=== PATIENT | female | born 1975 | race Caucasian/White ===

== ENCOUNTER 2019-07-31 16:37 | Outpatient (REF) | payer OTHER, MEDICARE, SELFPAY | END 2019-07-31 16:57 | LOC: NCHCN 16:37 | PROVIDERS: PCP Physician Assistant; Visit Provider Nurse Practitioner Family | DX: R19.7 Diarrhea, unspecified (principal) | CPT/HCPCS: 87324 ==

== ENCOUNTER 2019-10-09 13:15 | Outpatient (REF) | payer OTHER, MEDICARE, SELFPAY ==
[2019-10-09 19:30] LABS: HCT 37.4 % (36.0-46.0); HGB 12.4 g/dL (12.0-15.5); Mean Corp. HGB Concentration 33.2 g/dL (32.0-36.0); Mean Corpuscular Hemoglobin 28.1 pg (27.0-33.0); Mean Corpuscular Volume 84.8 fL (80-95); Mean Platelet Volume 12.1 fL (8.0-11.0); Platelet Count 298 x1000/uL (130-400); RBC 4.41 m/cumm (4.00-5.20); RBC Distribution Width 13.4 % (11.7-14.6); White Blood Cell Count 5.27 k/cumm (4.4-10.8)
[2019-10-09 20:15] LABS: Iron 75 ug/dL (50-170); Total Iron Binding Capacity 209 ug/dL (250-450); Transferrin Sat 36 % (15-50)
[2019-10-09 20:39] LABS: Ferritin 69 ng/mL (8-252); Magnesium 2.2 mg/dL (1.8-2.4); Vitamin B12 359 pg/mL (193-986)
== END 2019-10-09 13:35 ==
LOC: NCHCN 13:15
PROVIDERS: PCP Physician Assistant; Visit Provider Nurse Practitioner Family
DX: R53.83 Other fatigue (principal); M25.50 Pain in unspecified joint
CPT/HCPCS: 85027; 82607; 82728; 83540; 83550; 83735

== ENCOUNTER 2019-11-16 16:49 | Outpatient (REF) | payer OTHER, MEDICARE, SELFPAY ==
[2019-11-20 09:58] LABS: SARS-CoV-2 RNA Undetected (Undetected); SARS-CoV-2 Specimen Source Nasopharynx
== END 2019-11-16 17:09 ==
LOC: NCHCN 16:49
PROVIDERS: PCP Physician Assistant; Visit Provider Nurse Practitioner Family
DX: Z11.59 Encounter for screening for other viral diseases (principal)
CPT/HCPCS: U0003

== ENCOUNTER 2020-04-23 15:19 | Outpatient (REF) | payer MEDICARE, SELFPAY ==
[2020-04-25 09:37] LABS: COVID-19 RT-PCR Result NEGATIVE (Negative)
== END 2020-04-23 15:39 ==
LOC: NCHCN 15:19
PROVIDERS: PCP Family Medicine; Visit Provider Family Medicine
DX: J44.1 Chronic obstructive pulmonary disease with (acute) exacerbation (principal)
CPT/HCPCS: U0003

== ENCOUNTER 2020-05-12 16:09 | Outpatient (REF) | payer MEDICARE, SELFPAY ==
[2020-05-14 12:30] LABS: COVID-19 RT-PCR UVMMC Result Negative (Negative)
== END 2020-05-12 16:29 ==
LOC: NCHCN 16:09
PROVIDERS: PCP Family Medicine; Visit Provider Internal Medicine
DX: J06.9 Acute upper respiratory infection, unspecified (principal)
CPT/HCPCS: U0003

== ENCOUNTER 2020-09-17 19:28 | Outpatient (REF) | payer MEDICARE, SELFPAY ==
[2020-09-19 13:53] LABS: COVID-19 RT-PCR UVMMC Result Negative (Negative)
== END 2020-09-17 19:29 | disposition home or self-care (01) ==
LOC: NCHCN 19:28
PROVIDERS: PCP Family Medicine; Visit Provider Internal Medicine
DX: Z20.822 Contact with and (suspected) exposure to COVID-19 (principal); R06.02 Shortness of breath
CPT/HCPCS: U0003

== ENCOUNTER 2020-11-18 20:06 | Outpatient (REF) | payer MEDICARE, SELFPAY ==
[2020-11-18 21:54] LABS: C Diff PCR Negative (Negative)
[2020-11-19 22:59] LABS: Campylobacter PCR Negative (Negative); Salmonella PCR Negative (Negative); Shiga Toxin PCR Negative (Negative); Shigella/Enteroinvasive Ecoli Negative (Negative)
== END 2020-11-18 20:07 | disposition home or self-care (01) ==
LOC: NCHCN 20:06
PROVIDERS: PCP Family Medicine; Visit Provider Nurse Practitioner Family
DX: R19.7 Diarrhea, unspecified (principal)
CPT/HCPCS: 87329; 87493; 87505; 87177

== ENCOUNTER 2021-02-02 16:20 | Outpatient (REF) | payer MEDICARE, MEDICAID, SELFPAY ==
[2021-02-02 20:20] LABS: CREATININE 0.8 mg/dL (0.55-1.02)
== END 2021-02-02 16:21 | disposition home or self-care (01) ==
LOC: NCHCN 16:20
PROVIDERS: PCP Family Medicine; Visit Provider Nurse Practitioner Family
DX: R10.9 Unspecified abdominal pain (principal)
CPT/HCPCS: 82565

== ENCOUNTER 2021-04-07 15:30 | Outpatient (REF) | payer MEDICARE, MEDICAID, SELFPAY ==
[2021-04-09 16:59] LABS: COVID-19 RT-PCR UVMMC Result Negative (Negative)
== END 2021-04-07 15:31 | disposition home or self-care (01) ==
LOC: NCHCN 15:30
PROVIDERS: PCP Family Medicine; Visit Provider Nurse Practitioner Family
DX: Z20.822 Contact with and (suspected) exposure to COVID-19 (principal); R05.8 Other specified cough
CPT/HCPCS: U0003

== ENCOUNTER 2021-05-06 16:26 | Outpatient (REF) | payer MEDICARE, MEDICAID, SELFPAY ==
[2021-05-08 11:18] LABS: COVID-19 RT-PCR UVMMC Result Negative (Negative)
== END 2021-05-06 16:27 | disposition home or self-care (01) ==
LOC: NCHCN 16:26
PROVIDERS: PCP Family Medicine; Visit Provider Physician Assistant
DX: Z20.822 Contact with and (suspected) exposure to COVID-19 (principal)
CPT/HCPCS: U0003; U0005

== ENCOUNTER 2021-06-05 15:47 | Outpatient (REF) | payer MEDICARE, MEDICAID, SELFPAY ==
[2021-06-07 12:04] LABS: COVID-19 RT-PCR UVMMC Result Negative (Negative)
== END 2021-06-05 15:48 | disposition home or self-care (01) ==
LOC: NCHCN 15:47
PROVIDERS: PCP Family Medicine; Visit Provider Physician Assistant
DX: Z20.822 Contact with and (suspected) exposure to COVID-19 (principal); R06.02 Shortness of breath
CPT/HCPCS: U0003

== ENCOUNTER 2021-07-27 13:48 | Outpatient (REF) | payer MEDICARE, MEDICAID, SELFPAY ==
[2021-07-29 11:32] LABS: COVID-19 RT-PCR UVMMC Result Positive (Negative)
== END 2021-07-27 13:49 | disposition home or self-care (01) ==
LOC: NCHCN 13:48
PROVIDERS: PCP Family Medicine; Visit Provider Internal Medicine
DX: Z20.822 Contact with and (suspected) exposure to COVID-19 (principal)
CPT/HCPCS: U0003; U0005

== ENCOUNTER 2022-10-12 16:00 | Emergency (ER) | payer MEDICARE, MEDICAID, SELFPAY ==
[2022-10-12 16:05] VITALS: BP 127/80; RESP 120; TEMP 36.1; O2SAT 99
--- NOTE | 2022-10-12 16:30 | DI.CT_ITS ---
Exam(s) CT ABDOMEN PELVIS W EXAM: CT ABDOMEN PELVIS W CLINICAL HISTORY: hematuria TECHNIQUE: Imaging Protocol: Axial computed tomography images with coronal and sagittal reformatted images were created and reviewed CONTRAST MATERIAL: Intravenous: Omnipaque 350 Contrast volume:100 mL Oral: No COMPARISON: No exams were available for comparison FINDINGS: ABDOMEN: Lung Bases: There is a mitral valve replacement. Liver: Normal density. There is a well-circumscribed hypodensity in the right lobe of the liver. It measures 1.1 cm. It is most suggestive of a cyst. There is a nonspecific hypodensity in the left lo be of the liver. It is too small for further characterization. Portal, Superior Mesenteric, and Splenic Veins: Unremarkable. Gallbladder and Biliary Tract: Status post cholecystectomy. The common duct measures 1 cm. This lik mckinley reflects post cholecystectomy changes. No evidence of pancreatic head mass is seen. Pancreas: Normal density, no abnormal calcifications or inflammatory process. Spleen: Normal. Adrenals: No masses seen. Kidneys: Normal size, contour and axis. No radiodense stones or obstructive uropathy. There is a 9 mm simple cyst in the lower pole of the left kidney. No follow-up is recommended. There is a tiny hyp odensity in the midpole of the right kidney. It is too small for further characterization but likely reflects a small cyst. Abdominal Aorta: Abdominal portion non-dilated. Bowel: There are diverticula seen in the colon, but no evidence of acute diverticulitis. There is no evidence of bowel obstruction. Surgical clips are seen in the region of the cecum suggesting prior appendectomy. There is mild thickening of the wall of the descending colon and proximal sigmoid colo n without pericolonic inflammatory change. This may be due to underdistention. Peritoneal Cavity: No ascites, collection or mesenteric inflammatory response. No free air. Lymph Nodes: Within normal limits. Bones: Within normal limits for the patient's age. Soft Tissues: There is a small fat containing umbilical hernia. PELVIS: Bladder: There is diffuse thickening of the wall of the urinary bladder. Reproductive Organs: Patient is status post hysterectomy. Lymph Nodes: Within normal limits. Bones: Within normal limits for the patient's age. IMPRESSION: 1. No evidence of nephrolithiasis or hydronephrosis. 2. Diffuse thickening of the wall of the urinary bladder. This can be seen with underdistention. Pl ease correlate clinically. 3. Diverticulosis but no evidence of acute diverticulitis. 4. Mild thickening of the wall of portions of the colon. This may be due to underdistention. Coliti s cannot be excluded. RADIATION DOSE DELIVERED: 788.21mGy.cm Total DLP DATA REPOSITORY: All CT scans at this facility are submitted to the National Radiology Data Registry (NRDR) Dose Index Registry (DIR) with the [employer] (A[employer]). RADIATION OPTIMIZATION: All CT scans at this facility use at least one of these dose optimization te chniques: automated exposure control; mA and/or kV adjustment per patient size (includes targeted exa ms where dose is matched to clinical indication); or iterative reconstruction.
--- NOTE | 2022-10-12 16:33 | W.ED.GENAD ---
Discharge Plan Disposition Patient Disposition: Home Condition: Improving Discharge Details Clinical Impression: Coumadin toxicity Primary Care Provider: Vielka Dockery ED Provider: Sincere Guido Home Meds and New Rx's Prescriptions: Held warfarin 2 mg tablet 2 mg PO DAILY Hold Instructions: Resume on 10/13/22. Patient Comments: 6mg - tue- tue- Tuesday, 4mg the rest of week No Action clonazepam 1 mg tablet 1 mg PO DAILY Qty: 90 0RF trazodone 100 mg tablet 100 mg PO QHS Qty: 90 1RF zolpidem 5 mg tablet 5 mg PO QHS PRN (Reason: sleep) Qty: 90 0RF ondansetron 8 mg tablet,disintegrating 8 mg PO Q8H PRN (Reason: nausea and vomiting) Qty: 90 1RF fluvoxamine 100 mg tablet 100 mg PO BID naratriptan 2.5 mg tablet See Rx Instructions PO .COMPLEX Rx Instructions: take 1 tab at onset of headache; if no relief may repeat 1 tab after at least 4 hrs; max = 2 tabs/24 hrs PO folic acid 1 mg tablet 1 mg PO DAILY aspirin 81 mg tablet,delayed release (DR/EC) 81 mg PO DAILY metoprolol tartrate 25 mg tablet 12.5 mg PO BID amoxicillin 500 mg capsule 2,000 mg PO ONCE Rx Instructions: prior to any dental procedure potassium 99 mg PO DAILY azithromycin 500 mg tablet 500 mg PO .-- albuterol sulfate 2.5 mg /3 mL (0.083 %) solution for nebulization 2.5 mg inhalation Q4H PRN melatonin 3 mg tablet 15 mg PO HS topiramate [Topamax] 25 MG tablet 25 mg PO BID duloxetine 60 mg capsule,delayed release(DR/EC) 60 mg PO DAILY Qty: 90 1RF Rx Instructions: Patient will stop Reglan. nicotine 21 mg/24 hr patch 24 hour 1 patch transdermal DAILY Qty: 28 0RF omeprazole 40 mg capsule,delayed release(DR/EC) See Rx Instructions .ROUTE .COMPLEX Qty: 60 12RF Dose Instruction: TAKE ONE CAPSULE BY MOUTH TWICE A DAY Rx Instructions: TAKE ONE CAPSULE BY MOUTH TWICE A DAY meclizine 25 mg tablet See Rx Instructions .ROUTE .COMPLEX Qty: 90 0RF Dose Instruction: TAKE TWO TABLETS BY MOUTH THREE TIMES A DAY NEEDED Rx Instructions: TAKE TWO TABLETS BY MOUTH THREE TIMES A DAY NEEDED benzonatate 200 mg capsule 200 mg PO TID Qty: 90 1RF Discharge Instructions Instructions: Elevated INR (ED) Discharge Data Discharge Physician: Sincere Guido Medical Decision Making Patient presents emergency department with ecchymosis to right forearm stating that she is not taking her Coumadin for she developed this ecchymosis and on Tuesday developed hematuria where she went to [facility] and states that her INR was 5. States that she did not get a vitamin K reason she showed up today again for reevaluation. Here PT and INR are 3.4 which is therapeutic for her at this time. There is notices vitamin K. She had a CT of the abdomen and pelvis which shows some thickening of the bladder which could be compatible with hemorrhagic cystitis. Urinalysis does not show any abnormality at this time and labs are unremarkable except for potassium of 2.8. Patient states that her previous potassium that was obtained was 2.5 and she takes potassium tablets. She received 10 meq of potassium in the emergency department Differential Diagnosis Differential Diagnosis: 1. Coumadin toxicity 2. Hemorrhagic cystitis 3. Hematuria Medical Records Medical records reviewed: Yes I reviewed the patient's medical records. Imaging Data Radiologic Study: Attestation: I personally reviewed and interpreted this imaging study as follows: Imaging: CT Scan My impression: Agree with radiology reading as described below Radiologist's impression: liang Name: Yelitza Hughes Unit #: [id number] Loc: ER ? Ordering Provider:? Status: REG ER ? Primary Care Provider: Vielka Dockery NP Date of Exam: 10/12/22 Sex: F ? : 1975 Age: 46 ? Exam(s) PROCEDURE INFORMATION: Exam: CT Abdomen And Pelvis With Contrast Exam date and time: 10/12/2022 5:35 PM Age: 46 years old Clinical indication: Other: Hematuria; Prior surgery; Surgery date: 6+ months; Surgery type: Gallbladder removed, appendectomy, hysterotomy TECHNIQUE: Imaging protocol: Computed tomography of the abdomen and pelvis with contrast. Radiation optimization: All CT scans at this facility use at least one of these dose optimization techniques: automated exposure control; mA and/or kV adjustment per patient size (includes targeted exams where dose is matched to clinical indication); or iterative reconstruction. Contrast material: OMNIPAQUE 350; Contrast volume: 100 ml; Contrast route: INTRAVENOUS (IV);? COMPARISON: No relevant prior studies available. FINDINGS: Liver: There is a 1 cm right hepatic lobe cyst. Gallbladder and bile ducts: There has been a cholecystectomy. There is mild biliary ductal dilatation, likely related to the prior cholecystectomy. Pancreas: The pancreas is mildly atrophic, but otherwise appears unremarkable without focal lesion or evidence of acute inflammation. Spleen: Normal. No splenomegaly. Adrenal glands: Normal. No mass. Kidneys and ureters: No renal or ureteral stones are identified. There is no hydronephrosis or hydroureter. There are multiple focal small regions of renal cortical scarring. There are multiple subcentimeter low-dense renal lesions which are too small to characterize but likely represent benign cysts. Stomach and bowel: There are scattered colonic diverticula without evidence for acute diverticulitis. The colon is not well distended, limiting evaluation. Cannot exclude regions of mild colitis involving the right colon and sigmoid colon. The small bowel appears normal. There is no evidence for bowel obstruction. Appendix: There has been an appendectomy. Intraperitoneal space: There is no free intraperitoneal air. There is no evidence of free intraperitoneal fluid. Vasculature: Unremarkable. No abdominal aortic aneurysm. Lymph nodes: Unremarkable. No enlarged lymph nodes. Urinary bladder: No bladder stones are identified. Findings suggest mild diffuse bladder wall thickening, although the bladder is not well distended, limiting evaluation. Reproductive: There has been a hysterectomy. Bones/joints: Unremarkable. No acute fracture. Soft tissues: Unremarkable. Other findings: . IMPRESSION: 1. ? No urinary tract stones or evidence of urinary tract obstruction. 2. ? Findings suggest mild diffuse bladder wall thickening, which can be seen in the setting of cystitis. Recommend clinical correlation. 3. ? The colon is not well distended, limiting evaluation. Cannot exclude regions of mild colitis, as described above. Recommend clinical correlation. 4. ? Status post cholecystectomy, appendectomy and hysterectomy. Dictated and Authenticated by: Raudel Gillette MD. Ordering:KALEB Post MD Lab Data Lab results reviewed: Yes I reviewed the patient's lab results. Lab results narrative: Labs show an INR of 3.4 with a normal white blood cell count urinalysis does not show hematuria at this time with pyuria and the only abnormality is that her potassium is 2.8. Patient does state that she take potassium tablets for potassium below previous Labs: RUN DATE: 10/12/22 [facility] PAGE 1 RUN TIME: [id number] RUN USER: [place] [address] Iris Del Rosario MD PATIENT REPORT PATIENT: Yelitza Hughes LOC: ER U #: [id number] /SX: 1975 F ROOM: RE10/12/[address]: SINCERE GUIDO MD STATUS: REG ER BED: DIS: SPEC #: [id number] DENIS: 10/12/22 STATUS: COMP REQ #: [id number] RECD: 10/12/[address]: SINCERE GUIDO MD ENTERED: 10/12/[address]: VIELKA DOCKERY NP FAX #: ORDERED: Urinalysis Test Result Flag Reference Verified Color Yellow Yellow 10/12/22 Clarity Clear Clear 10/12/22 Specific [place] <= 1.005 1.005-1.025 10/12/22 pH 5.5 5-8 10/12/22 Leukocyte Esterase Negative Negative 10/12/22 Nitrite Negative Negative 10/12/22 Protein Negative Negative mg/dL 10/12/22 Glucose Negative Negative mg/dL 10/12/22 Ketones 15 H Negative mg/dL 10/12/22 Urobilinogen 0.2 Up to 0.2 mg/dL 10/12/22 Bilirubin Negative Negative 10/12/22 Blood Negative Negative 10/12/22 Patient: Yelitza Hughes LABORATORY HPI General Date/Time Provider Initiated Documentation: 10/12/22 16:09. HPI Narrative: Patient presents emergency department concern for she has taken Coumadin and her INR has gone up to 5 and went to [facility] yesterday where she states they did not do anything and now she is noted a ecchymosis on her right arm and forearm and also had an episode of hematuria. Denies any abdominal pain denies any flank pain denies any headache. Reports she takes Coumadin for she has 2 valve replacements has been taking it for years but it is difficult for her to maintain her INR between 2.5 and 3.5. Related Data Home Medications Medication Instructions Recorded Confirmed topiramate 25 mg tablet (Topamax) 25 mg PO BID 02/20/13 10/12/22 albuterol sulfate 2.5 mg/3 mL 2.5 mg inhalation Q4H PRN 08/12/22 10/12/22 (0.083 %) solution for nebulization amoxicillin 500 mg capsule 2,000 mg PO ONCE 08/12/22 09/08/22 aspirin 81 mg tablet,delayed 81 mg PO DAILY 08/12/22 09/08/22 release azithromycin 500 mg tablet 500 mg PO .M-W-F 08/12/22 09/08/22 fluvoxamine 100 mg tablet 100 mg PO BID 08/12/22 10/12/22 folic acid 1 mg tablet 1 mg PO DAILY 08/12/22 10/12/22 melatonin 3 mg tablet 15 mg PO HS 08/12/22 09/08/22 metoprolol tartrate 25 mg tablet 12.5 mg PO BID 08/12/22 09/08/22 naratriptan 2.5 mg tablet See Rx Instructions PO .COMPLEX 08/12/22 09/08/22 potassium 99 mg PO DAILY 08/12/22 10/12/22 warfarin 2 mg tablet 2 mg PO DAILY 08/12/22 10/12/22 duloxetine 60 mg capsule,delayed 60 mg PO DAILY #90 caps 08/18/22 10/12/22 release nicotine 21 mg/24 hr daily 1 patch transdermal DAILY #28 ea 08/25/22 10/12/22 transdermal patch clonazepam 1 mg tablet 1 mg PO DAILY #90 tabs 09/08/22 10/12/22 ondansetron 8 mg disintegrating 8 mg PO Q8H PRN nausea and 09/08/22 10/12/22 tablet vomiting #90 tabs trazodone 100 mg tablet 100 mg PO QHS #90 tabs 09/08/22 10/12/22 zolpidem 5 mg tablet 5 mg PO QHS PRN sleep #90 tabs 05/24/23 06/27/23 benzonatate 200 mg capsule 200 mg PO TID #90 caps 09/29/22 10/12/22 meclizine 25 mg tablet See Rx Instructions .Route 09/29/22 10/12/22 .COMPLEX #90 tabs omeprazole 40 mg capsule,delayed See Rx Instructions .Route 09/29/22 10/12/22 release .COMPLEX #60 caps Previous Rx's Medication Instructions Recorded duloxetine 60 mg capsule,delayed 60 mg PO DAILY #90 caps 08/18/22 release nicotine 21 mg/24 hr daily 1 patch transdermal DAILY #28 ea 08/25/22 transdermal patch clonazepam 1 mg tablet 1 mg PO DAILY #90 tabs 09/08/22 ondansetron 8 mg disintegrating 8 mg PO Q8H PRN nausea and 09/08/22 tablet vomiting #90 tabs trazodone 100 mg tablet 100 mg PO QHS #90 tabs 09/08/22 zolpidem 5 mg tablet 5 mg PO QHS PRN sleep #90 tabs 09/08/22 benzonatate 200 mg capsule 200 mg PO TID #90 caps 09/29/22 meclizine 25 mg tablet See Rx Instructions .Route 09/29/22 .COMPLEX #90 tabs omeprazole 40 mg capsule,delayed See Rx Instructions .Route 09/29/22 release .COMPLEX #60 caps Allergies Allergy/AdvReac Type Severity Reaction Status Date / Time celecoxib [From Celebrex] Allergy Intermediate Verified 10/12/22 18:06 latex Allergy Intermediate Verified 10/12/22 18:06 naproxen Allergy Intermediate Verified 10/12/22 18:06 acetaminophen [From Vicodin] AdvReac Intermediate Nausea Unverified 10/12/22 18:08 hydrocodone [From Vicodin] AdvReac Intermediate Nausea Unverified 10/12/22 18:08 mushrooms Allergy Severe hives,itch Uncoded 10/12/22 18:06 adhesive tape Allergy Intermediate skin Uncoded 10/12/22 18:06 zurita, itching General Stated Complaint: GenMedical ROSA: 3 Review of Systems All systems reviewed & are unremarkable except as noted in HPI and below Constitutional Constitutional: Reports as per HPI and Reports system reviewed and no additional complaints, except as documented Eyes Eyes: Reports as per HPI and Reports system reviewed and no additional complaints, except as documented ENT Ears, Nose, Mouth, and Throat: Reports system reviewed and no additional complaints, except as documented and Reports as per HPI Cardiovascular Cardiovascular: Reports as per HPI and Reports system reviewed and no additional complaints, except as documented Respiratory Respiratory: Reports as per HPI and Reports system reviewed and no additional complaints, except as documented Gastrointestinal Gastrointestinal: Reports as per HPI and Reports system reviewed and no additional complaints, except as documented Genitourinary Genitourinary: Reports system reviewed and no additional complaints, except as documented and Reports as per HPI Musculoskeletal Musculoskeletal: Reports system reviewed and no additional complaints, except as documented and Reports as per HPI Neurologic Neurologic: Reports system reviewed and no additional complaints, except as documented and Reports as per HPI Psychiatric Psychiatric: Reports system reviewed and no additional complaints, except as documented and Reports as per HPI Endocrine Endocrine: Reports system reviewed and no additional complaints, except as documented and Reports as per HPI Hematologic/Lymphatic Hematologic/Lymphatic: Reports system reviewed and no additional complaints, except as documented and Reports as per HPI PFSH All Active Problems (Updated 10/12/22 @ 19:27 by Sincere Guido MD) Coumadin toxicity (Acute) History of traumatic brain injury (Acute) GERD (gastroesophageal reflux disease) (Chronic) Lumbago (Acute) Cigarette smoker (Acute) Benign positional vertigo (Acute) Anxiety (Chronic) Restless leg syndrome (Acute) Depression (Chronic) Insomnia (Acute) Dysphagia (Acute) Irritable bowel syndrome (IBS) (Chronic) Eating disorder (Acute) Mitral valve stenosis (Acute) Pulmonary hypertension (Acute) Chronic obstructive pulmonary disease (Chronic) Orthostatic hypotension (Acute) Anemia (Chronic) Medical History Fatigue H/O concussion H/O deep venous thrombosis Polypharmacy Post-concussion syndrome (09/20/13) Surgical History H/O aortic valve replacement Hx of hysterectomy Hx of tubal ligation Family History Father Alcohol use disorder Asthma Daughter Anxiety Asthma Depression Maternal Grandfather Heart disease Depression Social History Smoking/Tobacco Use Status: Current every day Tobacco: How many years used: 38 Smoking risk assessment performed?: Yes Alcohol Intake: current Alcohol Intake frequency: a few times a month Alcohol type: beer Drug use: Never Substance use type: does not use Details: On nicotine patches Adopted: No Caregiver/Support person: No Foster care: No Household members: none Housing: house Number of Children: 4 number of grandchildren: 4 Education Level: high school current occupation: none Pets and animals: Yes Pets and animals: dog(s) Sexually active: No Do you think of yourself as: straight/heterosexual How often do you talk on the phone with friends or family?: three or more times per week How often do you get together with friends or relatives?: three or more times per week Panel score (0-1 are the most socially isolated patients): 1 What type of physical activity do you participate in: none Special radha needs: No Seatbelt use: never Helmet use: Yes Helmet use: sometimes Drive intox or ride w/intox taxicab driver: No Do you feel safe at home: Yes Do you feel safe in your relationship?: Yes Exam Narrative Exam Narrative: Exam; vitals signs as reported above Constitutional; In no acute distress, afebrile General: cooperative, healthy appearing, comfortable and no acute distress HEENT: Head: normal to inspection, no palpable skull fracture and normocephalic Eyes: l: appearance normal, both eyes and all related structures ]Pupils: PERRL EOM: EOM intact bilaterally Direct ophthalmoscopy: normal light reflex, normal conjunctiva, normal visual acuity Neck no JVD, supple Neck: normal visual inspection, full ROM and no lymphadenopathy Chest Chest: normal inspection of the chest Respiratory : normal respiratory effort and able to speak in complete sentences Cardio Rate: regular rate Rhythm: regular rhythm normal heart sounds S1 and S2 no murmurs, gallops, or rubs GI Inspection: normal to inspection, normal bowel sounds, soft, non tender, non distended, no organomegally Back/Spine/ no CVA tenderness Thoracic/Lumbar Spine: no tenderness or deformities Skin no rashes or lesions Neuro: patient alert and no meningeal signs, Cranial Nerves: CN's II-XI intact bilaterally, Cognition: normal cognition, Speech: speech normal, Gait: normal gait, Depp tendon reflexes normal 2+ Extremities, no edema, full range of motion, normal strength 10 x 10 cm linear ecchymosis in the right arm nontender and superficial : nomal Course Vital Signs Vital signs: Vital Signs Temperature 36.1 C L 10/12/22 16:05 Respiratory Rate 120 H 10/12/22 16:05 Blood Pressure 127/80 10/12/22 16:05 Pulse Oximetry 99 10/12/22 16:05 Temperature 36.1 C L 10/12/22 16:05 Respiratory Rate 120 H 10/12/22 16:05 Respiratory Effort Normal 10/12/22 16:11 Blood Pressure 127/80 10/12/22 16:05 Pulse Oximetry 99 10/12/22 16:05 Oxygen Delivery Method Room Air 10/12/22 16:05 Oxygen Flow Rate 0 10/12/22 16:05 Pain Level 6 10/12/22 16:05 PAWSS Have you Been Recently Intoxicated or Drunk Within the Last 30 days?: No Have you Ever Experienced Previous Episodes of Alcohol Withdrawal?: No Have you ever Experienced Withdrawal Seizures?: No Have you ever Experienced Delirium Tremens(DT)s?: No Have you ever undergone Alcohol Rehabilitation Treatment (i.e, inpt ot outpatient treatment programs)?: No Have you ever Experienced Blackouts?: No Have you ever Combined Alcohol with other Downers within the last 90 days?: No Have you ever Combined Alcohol with any other Substance of Abuse during the last 90 days?: No Result: 0 Vital Signs and Lab Results Vital Signs Most Recent Vital Signs in EMR: Most Recent Vital Signs Temp Pulse Resp BP Pulse Ox 36.1 C L 92 H 20 123/77 98 10/12/22 16:05 10/12/22 17:48 10/12/22 18:10 10/12/22 17:48 10/12/22 17:48 Lab Results 10/12/22 16:46 10/12/22 16:46 Blood Type / Crossmatch: Patient ABO/Rh O Positive 10/12/22 Antibody Screen NEGATIVE 10/12/22 Complete Blood Count: White Blood Count 8.81 10^3/uL (4.4-10.8) 10/12/22 16:46 Red Blood Count 4.25 10^6/uL (3.93-5.22) 10/12/22 16:46 Hemoglobin 10.8 g/dL (11.2-15.7) L 10/12/22 16:46 Hematocrit 34.0 % (36.0-46.0) L 10/12/22 16:46 Platelet Count 373 10^3/uL (130-400) 10/12/22 16:46 Complete Metabolic Panel: Sodium 138 mmol/L (136-145) 10/12/22 16:46 Potassium 2.8 mmol/L (3.5-5.1) L* 10/12/22 16:46 Chloride 99 mmol/L (98-107) 10/12/22 16:46 Carbon Dioxide 26.7 mmol/L (21.0-32.0) 10/12/22 16:46 BUN 7 mg/dL (7-18) 10/12/22 16:46 Creatinine 0.7 mg/dL (0.55-1.02) 10/12/22 16:46 Est GFR (CKD-EPI 2020) 107.95 (mL/min/1.73m2) 10/12/22 16:46 Magnesium 1.9 mg/dL (1.8-2.4) 10/12/22 16:46 Calcium 9.2 mg/dL (8.5-10.1) 10/12/22 16:46 Albumin 3.9 g/dL (3.4-5.0) 10/12/22 16:46 Glucose 94 mg/dL (74-106) 10/12/22 16:46 Liver Function Panel: Alanine Aminotransferase (ALT/SGPT) 17 U/L (14-59) 10/12/22 16:46 Aspartate Amino Transf (AST/SGOT) 20 U/L (15-37) 10/12/22 16:46 Coagulation Panel: INR International Normalized Ratio 3.4 (0.9-1.1) H 10/12/22 16:46 Prothrombin Time 34.5 sec (9.3-11.0) H 10/12/22 16:46 Activated Partial Thromboplast Time 54.3 sec (21.5-31.9) H 10/12/22 16:46 Cardiac Panel: No Data to Display Arterial Blood Gas: No Data to Display Venous Blood Gas: No Data to Display Pancreas Panel: No Data to Display Thyroid Panel: No Data to Display Infectious Disease: No Data to Display Blood Cultures: No Data to Display Toxicology Panel: No Data to Display Panel: No Data to Display
[2022-10-12 16:55] LABS: Abs Immature Grans 0.03 10^3/uL (0.0-0.06); Absolute Basophil Count 0.07 10^3/uL (0.0-0.2); Absolute Eosinophil Count 0.04 10^3/uL (0.0-0.7); Absolute Lymphocyte Count 2.09 10^3/uL (1.2-3.4); Absolute Monocyte Count 0.61 10^3/uL (0.1-0.8); Absolute Neutrophil Count 5.97 10^3/uL (1.2-6.7); Basophils % 0.8; Eosinophils % 0.5; HGB 10.8 g/dL (11.2-15.7); Immature Grans % 0.3; Lymphocytes % 23.7; MCH 25.4 pg (27.0-33.0); MCHC 31.8 % (32.0-36.0); MCV 80 fL (80-95); MPV 10.9 fL (8.0-11.0); Monocytes % 6.9; Neutrophils % 67.8; Platelet Count 373 10^3/uL (130-400); RBC 4.25 10^6/uL (3.93-5.22); RDW 18.9 % (11.7-14.6); RDW-SD 55.3 fL; WBC 8.81 10^3/uL (4.4-10.8)
[2022-10-12 17:09] LABS: INR 3.4 (0.9-1.1); PTT Activated 54.3 sec (21.5-31.9); Prothrombin Time 34.5 sec (9.3-11.0)
[2022-10-12 17:15] LABS: ALT 17 U/L (14-59); AST 20 U/L (15-37); Albumin 3.9 g/dL (3.4-5.0); Alkaline Phosphatase 75 U/L (46-116); Anion Gap 12.3 mmol/L (3-11); BUN 7 mg/dL (7-18); Bilirubin, Total 0.7 mg/dL (0.2-1.0); CO2 26.7 mmol/L (21.0-32.0); CREATININE 0.7 mg/dL (0.55-1.02); Calcium 9.2 mg/dL (8.5-10.1); Chloride 99 mmol/L (98-107); Estimated GFR 107.95 (mL/min/1.73m2); Glucose 94 mg/dL (74-106); Magnesium 1.9 mg/dL (1.8-2.4); Sodium 138 mmol/L (136-145)
[2022-10-12 17:16] LABS: Potassium 2.8 mmol/L (3.5-5.1)
[2022-10-12 17:38] LABS: Bilirubin Negative (Negative); Blood Negative (Negative); Clarity Clear (Clear); Glucose Negative (Negative); Ketones 15 mg/dL (Negative); Leukocyte Esterase Negative (Negative); Nitrite Negative (Negative); Specific Gravity <= 1.005 (1.005-1.025); Urobilinogen 0.2 mg/dL (Up to 0.2); pH 5.5 (5-8)
[2022-10-12 17:48] VITALS: BP 123/77; PULSE 92; O2SAT 98
[2022-10-12] MEDS: Omnipaque 350 MG/ML 100 ML BTL IJ (17:48)
[2022-10-12] MEDS: Normal Saline - Diluent 50 ML VIAL IJ (17:48)
[2022-10-12] MEDS: Normal Saline Flush 10 ML SYR IVP (17:49)
[2022-10-12 18:10] VITALS: RESP 20
[2022-10-12] MEDS: POTASSIUM CHLORIDE/D5-0.45NACL 1,000 ML 100 MEQ IV (18:32)
--- NOTE | 2022-10-12 18:54 | DI.VRAD_ITS ---
PROCEDURE INFORMATION: Exam: CT Abdomen And Pelvis With Contrast Exam date and time: 10/12/2022 5:35 PM Age: 46 years old Clinical indication: Other: Hematuria; Prior surgery; Surgery date: 6+ months; Surgery type: Gallbladder removed, appendectomy, hysterotomy TECHNIQUE: Imaging protocol: Computed tomography of the abdomen and pelvis with contrast. Radiation optimization: All CT scans at this facility use at least one of these dose optimization techniques: automated exposure control; mA and/or kV adjustment per patient size (includes targeted exams where dose is matched to clinical indication); or iterative reconstruction. Contrast material: OMNIPAQUE 350; Contrast volume: 100 ml; Contrast route: INTRAVENOUS (IV); COMPARISON: No relevant prior studies available. FINDINGS: Liver: There is a 1 cm right hepatic lobe cyst. Gallbladder and bile ducts: There has been a cholecystectomy. There is mild biliary ductal dilatation, likely related to the prior cholecystectomy. Pancreas: The pancreas is mildly atrophic, but otherwise appears unremarkable without focal lesion or evidence of acute inflammation. Spleen: Normal. No splenomegaly. Adrenal glands: Normal. No mass. Kidneys and ureters: No renal or ureteral stones are identified. There is no hydronephrosis or hydroureter. There are multiple focal small regions of renal cortical scarring. There are multiple subcentimeter low-dense renal lesions which are too small to characterize but likely represent benign cysts. Stomach and bowel: There are scattered colonic diverticula without evidence for acute diverticulitis. The colon is not well distended, limiting evaluation. Cannot exclude regions of mild colitis involving the right colon and sigmoid colon. The small bowel appears normal. There is no evidence for bowel obstruction. Appendix: There has been an appendectomy. Intraperitoneal space: There is no free intraperitoneal air. There is no evidence of free intraperitoneal fluid. Vasculature: Unremarkable. No abdominal aortic aneurysm. Lymph nodes: Unremarkable. No enlarged lymph nodes. Urinary bladder: No bladder stones are identified. Findings suggest mild diffuse bladder wall thickening, although the bladder is not well distended, limiting evaluation. Reproductive: There has been a hysterectomy. Bones/joints: Unremarkable. No acute fracture. Soft tissues: Unremarkable. Other findings: . IMPRESSION: 1. No urinary tract stones or evidence of urinary tract obstruction. 2. Findings suggest mild diffuse bladder wall thickening, which can be seen in the setting of cystitis. Recommend clinical correlation. 3. The colon is not well distended, limiting evaluation. Cannot exclude regions of mild colitis, as described above. Recommend clinical correlation. 4. Status post cholecystectomy, appendectomy and hysterectomy. Dictated and Authenticated by: Raudel Gillette MD. Ordering:KALEB Post MD
== END 2022-10-12 19:45 | disposition home or self-care (01) ==
PROVIDERS: Nurse Practitioner Family; Emergency Provider Emergency Medicine Emergency Medical Services; PCP Nurse Practitioner
DX: T45.511A Poisoning by anticoagulants, accidental (unintentional), initial encounter (principal)
CPT/HCPCS: 36415; 80053; 86850; 86900; 86901; 96365; 99284; 74177; 81003; 83735; 85025; 85610; 85730; J3490

== ENCOUNTER 2022-11-17 16:19 | Outpatient (REF) | payer MEDICARE, MEDICAID, SELFPAY ==
[2022-11-17 19:52] LABS: Abs Immature Grans 0.02 10^3/uL (0.0-0.06); Absolute Basophil Count 0.09 10^3/uL (0.0-0.2); Absolute Eosinophil Count 0.08 10^3/uL (0.0-0.7); Absolute Lymphocyte Count 1.77 10^3/uL (1.2-3.4); Absolute Monocyte Count 0.49 10^3/uL (0.1-0.8); Absolute Neutrophil Count 3.23 10^3/uL (1.2-6.7); Basophils % 1.6; Eosinophils % 1.4; HGB 11.3 g/dL (11.2-15.7); Immature Grans % 0.4; Lymphocytes % 31.2; MCH 25.6 pg (27.0-33.0); MCHC 31.4 % (32.0-36.0); MCV 81 fL (80-95); MPV 11.5 fL (8.0-11.0); Monocytes % 8.6; Neutrophils % 56.8; Platelet Count 446 10^3/uL (130-400); RBC 4.42 10^6/uL (3.93-5.22); RDW-SD 53.9 fL; WBC 5.68 10^3/uL (4.4-10.8)
[2022-11-17 20:01] LABS: ALT 18 U/L (14-59); AST 23 U/L (15-37); Albumin 3.7 g/dL (3.4-5.0); Alkaline Phosphatase 94 U/L (46-116); Anion Gap 9.1 mmol/L (3-11); BUN 3 mg/dL (7-18); Bilirubin, Total 0.3 mg/dL (0.2-1.0); CO2 24.9 mmol/L (21.0-32.0); CREATININE 0.8 mg/dL (0.55-1.02); Calcium 8.8 mg/dL (8.5-10.1); Chloride 105 mmol/L (98-107); Glucose 90 mg/dL (74-106); Potassium 3.7 mmol/L (3.5-5.1); Sodium 139 mmol/L (136-145); Total Protein 7.2 g/dL (6.4-8.2)
== END 2022-11-17 16:20 | disposition home or self-care (01) ==
LOC: LBN 16:19
PROVIDERS: PCP Nurse Practitioner; Visit Provider Nurse Practitioner
DX: E87.6 Hypokalemia (principal); R19.7 Diarrhea, unspecified; J45.909 Unspecified asthma, uncomplicated
CPT/HCPCS: 80053; 85025

== ENCOUNTER 2022-12-10 14:07 | Emergency (ER) | payer MEDICARE, MEDICAID, SELFPAY ==
[2022-12-10] VITALS (10 sets, daily range): BP systolic 127–138; BP diastolic 54–79; PULSE 75–86; RESP 16–18; TEMP 36.7–37.3; O2SAT 100
--- NOTE | 2022-12-10 16:49 | NUR.NOTE ---
Nursing Note: pt has been rude to nurses, pt will not make eye contact, refuses to change into gown, on phone. pt allowed this nurse to try 1x with U/S IV, this nurse went to get MD to try 2nd attempt, pt was non-compliant and rude to provider. provider walked out of room.
[2022-12-10 17:12] LABS: Abs Immature Grans 0.02 10^3/uL (0.0-0.06); Absolute Basophil Count 0.03 10^3/uL (0.0-0.2); Absolute Eosinophil Count 0.07 10^3/uL (0.0-0.7); Absolute Lymphocyte Count 2.12 10^3/uL (1.2-3.4); Basophils % 0.4; HCT 35.9 % (36.0-46.0); HGB 11.3 g/dL (11.2-15.7); Immature Grans % 0.3; MCH 25.6 pg (27.0-33.0); MCHC 31.5 % (32.0-36.0); MCV 81 fL (80-95); MPV 10.4 fL (8.0-11.0); Monocytes % 7.3; Platelet Count 399 10^3/uL (130-400); RBC 4.41 10^6/uL (3.93-5.22); RDW 18.4 % (11.7-14.6); RDW-SD 54.2 fL; WBC 6.84 10^3/uL (4.4-10.8)
[2022-12-10] MEDS: Pantoprazole 40 MG VIAL 80 MG IVP (17:15)
[2022-12-10] MEDS: Normal Saline 1,000 ML 1000 ML IV (17:16)
[2022-12-10 17:35] LABS: ALT 20 U/L (14-59); AST 21 U/L (15-37); Albumin 3.5 g/dL (3.4-5.0); Alkaline Phosphatase 91 U/L (46-116); Anion Gap 7.2 mmol/L (3-11); BUN 5 mg/dL (7-18); Bilirubin, Total 0.4 mg/dL (0.2-1.0); CO2 28.8 mmol/L (21.0-32.0); CREATININE 0.7 mg/dL (0.55-1.02); Calcium 8.8 mg/dL (8.5-10.1); Chloride 103 mmol/L (98-107); Estimated GFR 107.28 (mL/min/1.73m2); Glucose 95 mg/dL (74-106); Magnesium 1.9 mg/dL (1.8-2.4); Potassium 3.6 mmol/L (3.5-5.1); Sodium 139 mmol/L (136-145); Total Protein 7.6 g/dL (6.4-8.2)
--- NOTE | 2022-12-10 18:17 | W.ED.GENAD ---
Discharge Plan Disposition Patient Disposition: Home Condition: Stable Discharge Details Clinical Impression: GERD (gastroesophageal reflux disease) Primary Care Provider: Vielka Cowart ED Provider: Roxi Kendrick Home Meds and New Rx's Prescriptions: New sucralfate [Carafate] 1 gram tablet 1 g PO QACHS Qty: 120 0RF Continued trazodone 100 mg tablet 100 mg PO QHS Qty: 90 1RF estrogen 1 mg PO DAILY azithromycin 250 mg tablet 250 mg PO DAILY Qty: 30 8RF lorazepam 1 mg tablet 1 mg PO DAILY PRN (Reason: anxiety) Qty: 30 0RF zolpidem 10 mg tablet 10 mg PO QHS PRN (Reason: sleep) Qty: 30 0RF topiramate 100 mg tablet 100 mg PO BID Qty: 180 2RF ondansetron 8 mg tablet,disintegrating 8 mg PO Q8H PRN (Reason: nausea and vomiting) Qty: 90 1RF warfarin 2 mg tablet 3 mg PO DAILY Hold Instructions: Resume on 10/13/22. Patient Comments: 6mg - tue- tue- Tuesday, 4mg the rest of week Rx Instructions: 3mg-6mg d/t issues w/ therapeutic effect fluvoxamine 100 mg tablet 100 mg PO BID naratriptan 2.5 mg tablet See Rx Instructions PO .COMPLEX PRN (Reason: Migraine Headache) Rx Instructions: take 1 tab at onset of headache; if no relief may repeat 1 tab after at least 4 hrs; max = 2 tabs/24 hrs PO potassium 99 mg PO DAILY cyclobenzaprine 5 mg tablet See Rx Instructions PO TID PRN (Reason: muscle spasm) Qty: 40 0RF Rx Instructions: 1-2 orally three times a day PRN; duloxetine 60 mg capsule,delayed release(DR/EC) 60 mg PO DAILY Qty: 90 1RF Rx Instructions: Patient will stop Reglan. meclizine 25 mg tablet See Rx Instructions .ROUTE .COMPLEX Qty: 90 0RF Dose Instruction: TAKE TWO TABLETS BY MOUTH THREE TIMES A DAY NEEDED Rx Instructions: TAKE TWO TABLETS BY MOUTH THREE TIMES A DAY NEEDED benzonatate 200 mg capsule 200 mg PO TID Qty: 90 1RF clotrimazole 1 % cream 1 applic topical DAILY PRN (Reason: Rash) Rx Instructions: breast 'sweat bumps' Changed omeprazole 40 mg capsule,delayed release(DR/EC) 40 mg PO BID Qty: 60 12RF Dose Instruction: TAKE ONE CAPSULE BY MOUTH TWICE A DAY Rx Instructions: TAKE ONE CAPSULE BY MOUTH TWICE A DAY Discharge Instructions Instructions: GERD (Gastroesophageal Reflux Disease) (ED) Additional Instructions: return for new or worsening symptoms we added carafate and have referred you to general surgery for further outpatient evaluation and recommendations Referrals: Bishop Durán MD [ [facility] STAFF PHYSICIAN] - Discharge Data Discharge Date/Time-TO BE ENTERED AT DEPARTURE: 12/10/22 18:40 Medical Decision Making Is a 47-year-old female history of gastric ulcers who presents with coffee-ground emesis she has had for weeks. Her vitals are stable physical exam unremarkable. Her H&H was checked and hemoglobin is 11 hematocrit 35.9. As her symptoms have been ongoing and not worsened we did discuss increasing her omeprazole to 40 twice daily and adding Carafate and she will follow-up with outpatient GI or return here sooner for new or worsening symptoms. Her vital signs have remained stable while monitored in the department. Medical Records Medical records reviewed: Yes I reviewed the patient's medical records. Lab Data Lab results reviewed: Yes I reviewed the patient's lab results. Lab results narrative: Laboratory Tests Range/Units 12/10/22 12/10/22 16:59 16:59 WBC (4.4-10.8) 10^3/uL 6.84 RBC (3.93-5.22) 10^6/uL 4.41 Hgb (11.2-15.7) g/dL 11.3 Hct (36.0-46.0) % 35.9 L MCV (80-95) fL 81 MCH (27.0-33.0) pg 25.6 L MCHC (32.0-36.0) % 31.5 L RDW (11.7-14.6) % 18.4 H Plt Count (130-400) 10^3/uL 399 MPV (8.0-11.0) fL 10.4 Immature Gran % 0.3 Neutrophils % 60.0 Lymphocytes % 31.0 Monocytes % 7.3 Eosinophils % 1.0 Basophils % 0.4 Nucleated RBC % (0.0-0.3) % 0.0 Absolute Neutrophils (1.2-6.7) 10^3/uL 4.10 Absolute Lymphocytes (1.2-3.4) 10^3/uL 2.12 Absolute Monocytes (0.1-0.8) 10^3/uL 0.50 Absolute Eosinophils (0.0-0.7) 10^3/uL 0.07 Absolute Basophils (0.0-0.2) 10^3/uL 0.03 Sodium (136-145) mmol/L 139 Potassium (3.5-5.1) mmol/L 3.6 Chloride (98-107) mmol/L 103 Carbon Dioxide (21.0-32.0) mmol/L 28.8 Anion Gap (3-11) mmol/L 7.2 BUN (7-18) mg/dL 5 L Creatinine (0.55-1.02) mg/dL 0.7 Est GFR (CKD-EPI 2020) (mL/min/1.73m2) 107.28 Glucose (74-106) mg/dL 95 Calcium (8.5-10.1) mg/dL 8.8 Magnesium (1.8-2.4) mg/dL 1.9 Total Bilirubin (0.2-1.0) mg/dL 0.4 AST (15-37) U/L 21 ALT (14-59) U/L 20 Alkaline Phosphatase (46-116) U/L 91 Total Protein (6.4-8.2) g/dL 7.6 Albumin (3.4-5.0) g/dL 3.5 HPI General Mode of arrival: ambulatory. Date/Time Provider Initiated Documentation: 12/10/22 14:53. Limitations to Documentation: no limitations. Information obtained by: patient. HPI Narrative: dark stools and coffee ground emesis, ongoing for several weeks. taking extra tums and 60 mg omeprazole. history of ulcers and esophageal stricture. no dizziness or syncope, no chest pain or sob. On chronic oxygen Related Data Home Medications Medication Instructions Recorded Confirmed fluvoxamine 100 mg tablet 100 mg PO BID 08/12/22 12/10/22 naratriptan 2.5 mg tablet See Rx Instructions PO .COMPLEX 08/12/22 12/10/22 PRN Migraine Headache potassium 99 mg PO DAILY 08/12/22 12/10/22 warfarin 2 mg tablet 3 mg PO DAILY 08/12/22 12/10/22 duloxetine 60 mg capsule,delayed 60 mg PO DAILY #90 caps 08/18/22 12/10/22 release trazodone 100 mg tablet 100 mg PO QHS #90 tabs 09/08/22 12/10/22 benzonatate 200 mg capsule 200 mg PO TID #90 caps 09/29/22 12/10/22 meclizine 25 mg tablet See Rx Instructions .Route 09/29/22 12/10/22 .COMPLEX #90 tabs cyclobenzaprine 5 mg tablet See Rx Instructions PO TID PRN 10/25/22 12/10/22 muscle spasm #40 tabs azithromycin 250 mg tablet 250 mg PO DAILY #30 tabs 11/11/22 12/10/22 estrogen 1 mg PO DAILY 11/11/22 12/10/22 ondansetron 8 mg disintegrating 8 mg PO Q8H PRN nausea and 11/17/22 12/10/22 tablet vomiting #90 tabs topiramate 100 mg tablet 100 mg PO BID #180 tab-caps 11/17/22 12/10/22 lorazepam 1 mg tablet 1 mg PO DAILY PRN anxiety #30 tabs 12/08/22 12/10/22 zolpidem 10 mg tablet 10 mg PO QHS PRN sleep #30 tabs 12/08/22 12/10/22 clotrimazole 1 % topical cream 1 applic topical DAILY PRN Rash 12/10/22 12/10/22 omeprazole 40 mg capsule,delayed 40 mg PO BID #60 caps 12/10/22 release sucralfate 1 gram tablet (Carafate) 1 g PO QACHS #120 tabs 12/10/22 Previous Rx's Medication Instructions Recorded duloxetine 60 mg capsule,delayed 60 mg PO DAILY #90 caps 08/18/22 release trazodone 100 mg tablet 100 mg PO QHS #90 tabs 09/08/22 benzonatate 200 mg capsule 200 mg PO TID #90 caps 09/29/22 meclizine 25 mg tablet See Rx Instructions .Route 09/29/22 .COMPLEX #90 tabs cyclobenzaprine 5 mg tablet See Rx Instructions PO TID PRN 10/25/22 muscle spasm #40 tabs azithromycin 250 mg tablet 250 mg PO DAILY #30 tabs 11/11/22 ondansetron 8 mg disintegrating 8 mg PO Q8H PRN nausea and 11/17/22 tablet vomiting #90 tabs topiramate 100 mg tablet 100 mg PO BID #180 tab-caps 11/17/22 lorazepam 1 mg tablet 1 mg PO DAILY PRN anxiety #30 tabs 12/08/22 zolpidem 10 mg tablet 10 mg PO QHS PRN sleep #30 tabs 12/08/22 omeprazole 40 mg capsule,delayed 40 mg PO BID #60 caps 12/10/22 release sucralfate 1 gram tablet (Carafate) 1 g PO QACHS #120 tabs 12/10/22 Allergies Allergy/AdvReac Type Severity Reaction Status Date / Time celecoxib [From Celebrex] Allergy Intermediate Verified 12/08/22 14:06 latex Allergy Intermediate Verified 12/08/22 14:06 naproxen Allergy Intermediate Verified 12/08/22 14:06 acetaminophen [From Vicodin] AdvReac Intermediate Nausea Verified 12/08/22 14:06 hydrocodone [From Vicodin] AdvReac Intermediate Nausea Verified 12/08/22 14:06 mushrooms Allergy Severe hives,itch Uncoded 12/08/22 14:06 adhesive tape Allergy Intermediate skin Uncoded 12/08/22 14:06 zurita, itching General Stated Complaint: GI Bleed ROSA: 3 Review of Systems All systems reviewed & are unremarkable except as noted in HPI and below PFSH All Active Problems (Updated 12/10/22 @ 18:18 by Roxi Kendrick NP) Dyspnea (Acute) Nicotine dependence, cigarettes, uncomplicated (Acute) Respiratory failure with hypoxia (Acute) Vestibular dysfunction of left ear (Acute ~10/2022) 11/02/22 Neurology History of traumatic brain injury (Acute) GERD (gastroesophageal reflux disease) (Chronic) Lumbago (Acute) Cigarette smoker (Acute) Benign positional vertigo (Acute) Anxiety (Chronic) Restless leg syndrome (Acute) Depression (Chronic) Insomnia (Acute) Dysphagia (Acute) Irritable bowel syndrome (IBS) (Chronic) Eating disorder (Acute) Mitral valve stenosis (Acute) Pulmonary hypertension (Acute) Chronic obstructive pulmonary disease (Chronic) Orthostatic hypotension (Acute) Anemia (Chronic) Medical History Fatigue H/O concussion H/O deep venous thrombosis Polypharmacy Post-concussion syndrome (09/20/13) Surgical History H/O aortic valve replacement Hx of hysterectomy Hx of tubal ligation Family History Father Alcohol use disorder Asthma Daughter Anxiety Asthma Depression Maternal Grandfather Heart disease Depression Social History Smoking/Tobacco Use Status: Current every day Tobacco Type: cigarettes Tobacco: How many years used: 38 Smoking risk assessment performed?: Yes Alcohol Intake: current Alcohol Intake frequency: a few times a month Alcohol type: beer Drug use: Never Substance use type: does not use Details: On nicotine patches Adopted: No Caregiver/Support person: No Foster care: No Household members: none Housing: house Number of Children: 4 number of grandchildren: 4 Education Level: high school current occupation: none Pets and animals: Yes Pets and animals: dog(s) Sexually active: No Do you think of yourself as: straight/heterosexual How often do you talk on the phone with friends or family?: three or more times per week How often do you get together with friends or relatives?: three or more times per week Panel score (0-1 are the most socially isolated patients): 1 What type of physical activity do you participate in: none Special radha needs: No Seatbelt use: never Helmet use: Yes Helmet use: sometimes Drive intox or ride w/intox [employer]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 Do you feel safe at home: Yes Do you feel safe in your relationship?: Yes Exam Const General: no acute distress and ill appearing (Older appearing than stated age) chronically Nutritional Appearance: average body habitus [facility] Head: normal to inspection, normocephalic and atraumatic Mouth: oral mucosae normal Resp Effort & Inspection: normal respiratory effort Cardio Rate: regular rate Rhythm: regular rhythm GI Inspection: normal to inspection Palpation: soft, no guarding, no masses and tender Skin General skin exam: no rashes or lesions noted Neuro General: patient alert, patient awake and patient oriented x3 Extrem General: normal to inspection, full ROM and no pedal edema Course Vital Signs Vital signs: Vital Signs Temperature 36.7 C 12/10/22 14:15 Pulse 86 12/10/22 14:15 Respiratory Rate 17 12/10/22 14:15 Blood Pressure 127/79 12/10/22 14:15 Pulse Oximetry 100 12/10/22 14:15 Temperature 37.1 C 12/10/22 16:12 Temperature Source Temporal Artery Scan 12/10/22 14:15 Pulse 79 12/10/22 17:16 Respiratory Rate 16 12/10/22 16:12 Respiratory Effort Non-Labored 12/10/22 16:17 Blood Pressure 132/71 12/10/22 17:16 Blood Pressure Mean 83 12/10/22 17:16 Blood Pressure Position Sitting 12/10/22 14:15 Pulse Oximetry 100 12/10/22 17:20 Oxygen Delivery Method Nasal Cannula 12/10/22 16:12 Oxygen Flow Rate 2 12/10/22 16:12 Pain Level 7 12/10/22 16:12 Comment baseline for patient 12/10/22 16:12 Lab/Test Results Lab/Test Results: Laboratory Tests Range/Units 12/10/22 12/10/22 16:59 16:59 WBC (4.4-10.8) 10^3/uL 6.84 RBC (3.93-5.22) 10^6/uL 4.41 Hgb (11.2-15.7) g/dL 11.3 Hct (36.0-46.0) % 35.9 L MCV (80-95) fL 81 MCH (27.0-33.0) pg 25.6 L MCHC (32.0-36.0) % 31.5 L RDW (11.7-14.6) % 18.4 H Plt Count (130-400) 10^3/uL 399 MPV (8.0-11.0) fL 10.4 Immature Gran % 0.3 Neutrophils % 60.0 Lymphocytes % 31.0 Monocytes % 7.3 Eosinophils % 1.0 Basophils % 0.4 Nucleated RBC % (0.0-0.3) % 0.0 Absolute Neutrophils (1.2-6.7) 10^3/uL 4.10 Absolute Lymphocytes (1.2-3.4) 10^3/uL 2.12 Absolute Monocytes (0.1-0.8) 10^3/uL 0.50 Absolute Eosinophils (0.0-0.7) 10^3/uL 0.07 Absolute Basophils (0.0-0.2) 10^3/uL 0.03 Sodium (136-145) mmol/L 139 Potassium (3.5-5.1) mmol/L 3.6 Chloride (98-107) mmol/L 103 Carbon Dioxide (21.0-32.0) mmol/L 28.8 Anion Gap (3-11) mmol/L 7.2 BUN (7-18) mg/dL 5 L Creatinine (0.55-1.02) mg/dL 0.7 Est GFR (CKD-EPI 2020) (mL/min/1.73m2) 107.28 Glucose (74-106) mg/dL 95 Calcium (8.5-10.1) mg/dL 8.8 Magnesium (1.8-2.4) mg/dL 1.9 Total Bilirubin (0.2-1.0) mg/dL 0.4 AST (15-37) U/L 21 ALT (14-59) U/L 20 Alkaline Phosphatase (46-116) U/L 91 Total Protein (6.4-8.2) g/dL 7.6 Albumin (3.4-5.0) g/dL 3.5 PAWSS Have you Been Recently Intoxicated or Drunk Within the Last 30 days?: No Have you Ever Experienced Previous Episodes of Alcohol Withdrawal?: No Have you ever Experienced Withdrawal Seizures?: No Have you ever Experienced Delirium Tremens(DT)s?: No Have you ever undergone Alcohol Rehabilitation Treatment (i.e, inpt ot outpatient treatment programs)?: No Have you ever Experienced Blackouts?: No Have you ever Combined Alcohol with other Downers within the last 90 days?: No Have you ever Combined Alcohol with any other Substance of Abuse during the last 90 days?: No Positive Blood Alcohol level on Presentation? [PCS.BAL]: No Evidence of Increased Autonomic Activity (i.e. HR>120, tremor, sweating, agitation, nausea)?: No Result: 0
[2022-12-10] MEDS: Sucralfate 1 GM TAB PO (18:35)
== END 2022-12-10 18:40 | disposition home or self-care (01) ==
PROVIDERS: Emergency Provider Nurse Practitioner Acute Care; PCP Nurse Practitioner
DX: K21.9 Gastro-esophageal reflux disease without esophagitis (principal)
CPT/HCPCS: 80053; 96361; 96374; 99284; 83735; 85025

== ENCOUNTER → 2022-12-22 14:00 | Outpatient (BNVA) | payer MEDICARE, MEDICAID, SELFPAY | PROVIDERS: PCP Nurse Practitioner; Referring Provider Nurse Practitioner; Visit Provider Student in an Organized Health Care Education/Training Program ==

== ENCOUNTER 2023-01-21 22:32 | Emergency (ER) | payer MEDICARE, MEDICAID, SELFPAY ==
--- NOTE | 2023-01-21 23:48 | ED.GENADUL_ITS ---
Discharge Plan Disposition Patient Disposition: Eloped Discharge Details Clinical Impression: Laceration of left hand Primary Care Provider: Vielka Cowart ED Provider: Roger Lee Home Meds and New Rx's Prescriptions: No Action trazodone 100 mg tablet 100 mg PO QHS Qty: 90 1RF estrogen 1 mg PO DAILY azithromycin 250 mg tablet 250 mg PO DAILY Qty: 30 8RF zolpidem 10 mg tablet 10 mg PO QHS PRN (Reason: sleep) Qty: 30 0RF topiramate 100 mg tablet 100 mg PO BID Qty: 180 2RF ondansetron 8 mg tablet,disintegrating 8 mg PO Q8H PRN (Reason: nausea and vomiting) Qty: 90 1RF warfarin 2 mg tablet 3 mg PO DAILY Hold Instructions: Resume on 10/13/22. Patient Comments: 6mg - tue- sat- Tuesday, 4mg the rest of week Rx Instructions: 3mg-6mg d/t issues w/ therapeutic effect naratriptan 2.5 mg tablet See Rx Instructions PO .COMPLEX PRN (Reason: Migraine Headache) Rx Instructions: take 1 tab at onset of headache; if no relief may repeat 1 tab after at least 4 hrs; max = 2 tabs/24 hrs PO potassium 99 mg PO DAILY cyclobenzaprine 5 mg tablet See Rx Instructions PO TID PRN (Reason: muscle spasm) Qty: 40 0RF Rx Instructions: 1-2 orally three times a day PRN; duloxetine 60 mg capsule,delayed release(DR/EC) 60 mg PO DAILY Qty: 90 1RF Rx Instructions: Patient will stop Reglan. benzonatate 200 mg capsule 200 mg PO TID Qty: 90 1RF meclizine 25 mg tablet See Rx Instructions .ROUTE .COMPLEX Qty: 90 0RF Dose Instruction: TAKE TWO TABLETS BY MOUTH THREE TIMES A DAY NEEDED Rx Instructions: TAKE TWO TABLETS BY MOUTH THREE TIMES A DAY NEEDED bupropion HCl [Wellbutrin XL] 150 mg tablet extended release 24 hr 150 mg PO QAM Qty: 30 4RF lorazepam 1 mg tablet 1 mg PO DAILY PRN (Reason: anxiety) Qty: 30 5RF clotrimazole 1 % cream 1 applic topical DAILY PRN (Reason: Rash) Rx Instructions: breast 'sweat bumps' sucralfate [Carafate] 1 gram tablet 1 g PO QACHS Qty: 120 0RF omeprazole 40 mg capsule,delayed release(DR/EC) 40 mg PO BID Qty: 60 12RF Dose Instruction: TAKE ONE CAPSULE BY MOUTH TWICE A DAY Rx Instructions: TAKE ONE CAPSULE BY MOUTH TWICE A DAY Medical Decision Making 47-year-old female with a past medical history of (why do not you just look it up in your computer, I have 2 new valves and I am on Coumadin) per the computer COPD on 2 L, pulmonary hypertension, TBI, GERD, irritable bowel syndrome, Coumadin use secondary to mechanical valve/aortic valve replacement hysterectomy, tubal ligation, who presents today for a laceration on her left hand. She is right-hand dominant. She states she cut her hand with a clean knife few hours ago and is continued to ooze. She denies numbness or tingling. She states that the bleeding did not stop and so she came in here. Patient does not want to discuss anything additional to this. She has no other complaints. She denies any other modifying factors. She does state that her tetanus is up-to-date. Exam demonstrates a small 2 cm notably superficial laceration. No deep involvement whatsoever. It is gently oozing some blood. The area was pinched, and Dermabond was applied. This stopped the bleeding well. A second layer of Dermabond was then applied. Unfortunately the patient came during a particularly busy component in the emergency department. All nursing staff was busy managing critical EMS patient's. As a courtesy I did bring the patient back to the triage box to be triaged to see and assess her and make the process easier for nursing staff once they had a moment for triaging. On my initial assessment I dermabonded the patient's hand. While she was terse in our interaction, there was no significant negative component. When nursing came in to triage to the patient patient said she did not want to wait for paperwork, or to be triaged, and so she left the emergency department without completing the triage process or receiving any paperwork for discharge. I did not have any additional interactions with the patient aside from my initial where we applied the first and second layer of Dermabond. I am uncertain as to why she chose to leave otherwise HPI HPI Narrative: 47-year-old female with a past medical history of (why do not you just look it up in your computer, I have 2 new valves and I am on Coumadin) per the computer COPD on 2 L, pulmonary hypertension, TBI, GERD, irritable bowel syndrome, Coumadin use secondary to mechanical valve/aortic valve replacement hysterectomy, tubal ligation, who presents today for a laceration on her left hand. She is right-hand dominant. She states she cut her hand with a clean knife few hours ago and is continued to ooze. She denies numbness or tingling. She states that the bleeding did not stop and so she came in here. Patient does not want to discuss anything additional to this. She has no other complaints. She denies any other modifying factors. She does state that her tetanus is up-to-date. Related Data Home Medications Medication Instructions Recorded Confirmed naratriptan 2.5 mg tablet See Rx Instructions PO .COMPLEX 08/12/22 01/17/23 PRN Migraine Headache potassium 99 mg PO DAILY 08/12/22 01/17/23 warfarin 2 mg tablet 3 mg PO DAILY 08/12/22 01/17/23 duloxetine 60 mg capsule,delayed 60 mg PO DAILY #90 caps 08/18/22 01/17/23 release trazodone 100 mg tablet 100 mg PO QHS #90 tabs 09/08/22 01/17/23 benzonatate 200 mg capsule 200 mg PO TID #90 caps 09/29/22 01/17/23 cyclobenzaprine 5 mg tablet See Rx Instructions PO TID PRN 10/25/22 01/17/23 muscle spasm #40 tabs azithromycin 250 mg tablet 250 mg PO DAILY #30 tabs 11/11/22 01/17/23 estrogen 1 mg PO DAILY 11/11/22 01/17/23 ondansetron 8 mg disintegrating 8 mg PO Q8H PRN nausea and 11/17/22 01/17/23 tablet vomiting #90 tabs topiramate 100 mg tablet 100 mg PO BID #180 tab-caps 11/17/22 01/17/23 zolpidem 10 mg tablet 10 mg PO QHS PRN sleep #30 tabs 12/08/22 01/17/23 clotrimazole 1 % topical cream 1 applic topical DAILY PRN Rash 12/10/22 01/17/23 omeprazole 40 mg capsule,delayed 40 mg PO BID #60 caps 12/10/22 01/17/23 release sucralfate 1 gram tablet (Carafate) 1 g PO QACHS #120 tabs 12/10/22 01/17/23 meclizine 25 mg tablet See Rx Instructions .Route 12/13/22 01/17/23 .COMPLEX #90 tabs bupropion HCl 150 mg 24 hr tablet, 150 mg PO QAM #30 tabs 01/17/23 extended release (Wellbutrin XL) lorazepam 1 mg tablet 1 mg PO DAILY PRN anxiety #30 tabs 01/17/23 Previous Rx's Medication Instructions Recorded duloxetine 60 mg capsule,delayed 60 mg PO DAILY #90 caps 08/18/22 release trazodone 100 mg tablet 100 mg PO QHS #90 tabs 09/08/22 benzonatate 200 mg capsule 200 mg PO TID #90 caps 09/29/22 cyclobenzaprine 5 mg tablet See Rx Instructions PO TID PRN 10/25/22 muscle spasm #40 tabs azithromycin 250 mg tablet 250 mg PO DAILY #30 tabs 11/11/22 ondansetron 8 mg disintegrating 8 mg PO Q8H PRN nausea and 11/17/22 tablet vomiting #90 tabs topiramate 100 mg tablet 100 mg PO BID #180 tab-caps 11/17/22 zolpidem 10 mg tablet 10 mg PO QHS PRN sleep #30 tabs 12/08/22 omeprazole 40 mg capsule,delayed 40 mg PO BID #60 caps 12/10/22 release sucralfate 1 gram tablet (Carafate) 1 g PO QACHS #120 tabs 12/10/22 meclizine 25 mg tablet See Rx Instructions .Route 12/13/22 .COMPLEX #90 tabs bupropion HCl 150 mg 24 hr tablet, 150 mg PO QAM #30 tabs 01/17/23 extended release (Wellbutrin XL) lorazepam 1 mg tablet 1 mg PO DAILY PRN anxiety #30 tabs 01/17/23 Allergies Allergy/AdvReac Type Severity Reaction Status Date / Time celecoxib [From Celebrex] Allergy Intermediate Verified 12/08/22 14:06 latex Allergy Intermediate Verified 12/08/22 14:06 naproxen Allergy Intermediate Verified 12/08/22 14:06 acetaminophen [From Vicodin] AdvReac Intermediate Nausea Verified 12/08/22 14:06 hydrocodone [From Vicodin] AdvReac Intermediate Nausea Verified 12/08/22 14:06 mushrooms Allergy Severe hives,itch Uncoded 12/08/22 14:06 adhesive tape Allergy Intermediate skin Uncoded 12/08/22 14:06 zurita, itching General ROSA: 3 Review of Systems All systems reviewed & are unremarkable except as noted in HPI and below PFSH All Active Problems (Updated 01/22/23 @ 00:00 by Roger Lee DO) Laceration of left hand (Acute) Dyspnea (Acute) Nicotine dependence, cigarettes, uncomplicated (Acute) Respiratory failure with hypoxia (Acute) Vestibular dysfunction of left ear (Acute ~10/2022) 11/02/22 Neurology History of traumatic brain injury (Acute) GERD (gastroesophageal reflux disease) (Chronic) Lumbago (Acute) Cigarette smoker (Acute) Benign positional vertigo (Acute) Anxiety (Chronic) Restless leg syndrome (Acute) Depression (Chronic) Insomnia (Acute) Dysphagia (Acute) Irritable bowel syndrome (IBS) (Chronic) Eating disorder (Acute) Mitral valve stenosis (Acute) Pulmonary hypertension (Acute) Chronic obstructive pulmonary disease (Chronic) Orthostatic hypotension (Acute) Anemia (Chronic) Medical History Fatigue H/O concussion H/O deep venous thrombosis Polypharmacy Post-concussion syndrome (09/20/13) Surgical History H/O aortic valve replacement Hx of hysterectomy Hx of tubal ligation Family History Father Alcohol use disorder Asthma Daughter Anxiety Asthma Depression Maternal Grandfather Heart disease Depression Social History Smoking/Tobacco Use Status: Current every day Tobacco Type: cigarettes Tobacco: How many years used: 38 Smoking risk assessment performed?: Yes Alcohol Intake: current Alcohol Intake frequency: a few times a month Alcohol type: beer Drug use: Never Substance use type: does not use Details: On nicotine patches Adopted: No Caregiver/Support person: No Foster care: No Household members: none Housing: house Number of Children: 4 number of grandchildren: 4 Education Level: high school current occupation: none Pets and animals: Yes Pets and animals: dog(s) Sexually active: No Do you think of yourself as: straight/heterosexual How often do you talk on the phone with friends or family?: three or more times per week How often do you get together with friends or relatives?: three or more times per week Panel score (0-1 are the most socially isolated patients): 1 What type of physical activity do you participate in: none Special radha needs: No Seatbelt use: never Helmet use: Yes Helmet use: sometimes Drive intox or ride w/intox electric lift truck driver: No Do you feel safe at home: Yes Do you feel safe in your relationship?: Yes Exam Narrative Exam Narrative: 1.Const: Well-nourished, Well-developed, appearing stated age 2.Eyes: PERRL, no conjunctival injection, and symmetrical lids. 3.ENT: Atraumatic external nose and ears. Moist MM. Neck: Symmetric, trachea midline, No thyromegaly. 4.CVS: +S1/S2, No murmurs or gallops. Peripheral pulses 2+ and equal in all ext remities. Brisk capillary refill in all extremities. 5.RESP: Unlabored respiratory effort. Clear to auscultation bilaterally. No wheezes rales or rhonchi 6.GI: Soft, Nontender/Nondistended, No hepatosplenomegaly. No guarding or rebound. 7.MSK: Normocephalic/Atraumatic, Extremities w/o deformity or ttp No cyanosis or clubbing, Normal movement of all extremities 8.Skin: Warm, Dry. Patient demonstrates a superficial palmar laceration about 2 cm long, notably superficial. Slowly oozing blood. No deep component. Normal neurovascular exam distally. Brisk capillary refill. 9.Neuro: tile conduit layer II-XII grossly intact. Sensation grossly intact, no focal neurologic deficits. 10.Psych: (AAO) x3. Appropriate mood and affect
== END 2023-01-21 23:18 | disposition left against medical advice (07) ==
PROVIDERS: Emergency Provider Student in an Organized Health Care Education/Training Program; PCP Nurse Practitioner
DX: S61.412A Laceration without foreign body of left hand, initial encounter (principal); W23.0XXA Caught, crushed, jammed, or pinched between moving objects, initial encounter
CPT/HCPCS: 99282

== ENCOUNTER → 2023-03-24 14:29 | Outpatient (BNVA) | payer MEDICARE, MEDICAID, SELFPAY | PROVIDERS: PCP Nurse Practitioner; Referring Provider Nurse Practitioner; Visit Provider Physician Assistant Surgical | DX: J44.9 Chronic obstructive pulmonary disease, unspecified (principal); Z79.51 Long term (current) use of inhaled steroids; Z79.899 Other long term (current) drug therapy; J96.91 Respiratory failure, unspecified with hypoxia; I05.0 Rheumatic mitral stenosis; F17.210 Nicotine dependence, cigarettes, uncomplicated; I27.20 Pulmonary hypertension, unspecified | CPT/HCPCS: 99214 ==

== ENCOUNTER → 2023-05-18 00:20 | Outpatient (CLI) | payer MEDICARE, MEDICAID, SELFPAY ==
--- NOTE | 2023-05-18 08:00 | DI.CT_ITS ---
Exam(s) CT CHEST WO EXAM: CT CHEST WO CLINICAL HISTORY: dyspnea, unclear need for oxygen,RESP FAILURE WITH HYPOXIA,R06.00,J96.91. TECHNIQUE: Imaging protocol: Axial computed tomography images were obtained and coronal and sagittal reformatted images were created and reviewed. COMPARISON: CR XR CHEST 2VW (D) from 08/13/2022 CR XR SHOULDER MIN 2V RT from 10/11/[address] ABDOMEN PELVIS W from 10/12/2022 FINDINGS: Tracheobronchial tree: Patent where visualized. Pulmonary parenchyma: There are few scattered tiny (less than 3 mm) noncalcified nodules in the lungs . Mild centrilobular and paraseptal emphysema. No focal consolidating infiltrates. Mild dependent atelectasis in the lungs. Mediastinum and Codi: No dominant adenopathy or fluid collection. The esophagus is unremarkable. Thyroid gland: Unremarkable. Pleura: No effusion or pneumothorax. Heart: The heart is not dilated. No coronary artery calcifications are seen. No pericardial effusion. Mitral and aortic valve replacements. Aorta: Thoracic aorta non-dilated. Upper abdomen: Stable hepatic cyst. Lymph nodes: Within normal limits. Soft tissues: Unremarkable. Bones:Within normal limits for the patient's age. The sternal wires have been removed. There is an old fracture deformity of the sternum. IMPRESSION: 1. Mild centrilobular and paraseptal emphysema. 2. Few tiny scattered pulmonary nodules. Follow-up examination in 6-12 months is recommended for re- evaluation. 3. No focal consolidating infiltrates are seen. RADIATION DOSE DELIVERED: 460.8mGy.cm Total DLP 460.8mGy.cm Total DLP DATA REPOSITORY: All CT scans at this facility are submitted to the National Radiology Data Registry (NRDR) Dose Index Registry (DIR) with the [employer] (ACR). RADIATION OPTIMIZATION: All CT scans at this facility use at least one of these dose optimization te chniques: automated exposure control; mA and/or kV adjustment per patient size (includes targeted exa ms where dose is matched to clinical indication); or iterative reconstruction.
--- NOTE | 2023-05-18 14:00 | DI.US_ITS ---
APPROVED REPORT EXAM: Comprehensive 2D, Doppler, and color-flow Echocardiogram Patient Location: [facility] Aide: Harman Peterson RDCS (AE) Indications: hypoxic respiratory failure, dyspnea, mitral and aortic valve replacements Conclusion Normal chamber sizes. Normally functioning mechanical prosthetic aortic and mitral valves.Trace AI, mild MR. Mild TR withou t phtn. Normal LV function,EF 60-65%. Normal RV function. No intracardiac shunt. No pericardial effusion. Wall motion Left Ventricle The left ventricle is normal size. The left ventricular systolic function is normal. The left ventric ular ejection fraction is within the normal range. Mild concentric left ventricular hypertrophy. Ther e is normal LV segmental wall motion. There is no ventricular septal defect visualized. LVEF is 55-60 %. Right Ventricle The right ventricle is normal size. Right ventricular systolic function is grossly normal. Atria Left atrium is not well visualized. Right atrium size is normal. The interatrial septum is intact wit h no evidence for an atrial septal defect. Aortic Valve Aortic valve replacement is present. Trace aortic regurgitation. Mitral Valve Mechanical prosthetic mitral valve is present. Mild mitral regurgitation. Tricuspid Valve The tricuspid valve is normal in structure. There is no tricuspid valve stenosis. Moderate tricuspid regurgitation. The RVSP is 30.2 mmHg. Pulmonic Valve The pulmonary valve is normal in structure. There is no pulmonic valvular stenosis. There is no pulmo jaspal valvular regurgitation. Great Vessels The aortic root is normal in size. The ascending aorta is normal in size. Aortic arch is normal in ca liber. IVC is normal in size and collapses >50% with inspiration. Pericardium There is no pericardial effusion. 2D Dimensions IVSD d PLAX 1.06 cm F: 0.6-1.0 Ao Root d 3.02 cm F: 2.7 - 3.3 LVPW d PLAX 1.10 cm F: 0.6 - 1.0 Ao Asc Diam d 3.14 cm F: 2.3 - 3.1 LVID d PLAX 4.05 cm F: 3.8 - 5.2 LVDs 2.80 cm F: 2.2 - 3.5 LV EF Teichholz 58.9 % FS 30.81 % LV EDV (Teich) 72.0 mL LV ESV (Teich) 29.6 mL Stroke Vol Index (Teich) 23.69 M-Mode TAPSE 1.93 cm (M/F) >1.7 Auto EF LV EDV A4C 99.9 mL LV EDV A2C 125.3 mL LV EDV BP 114.7 mL LV ESV A4C 46.4 mL LV ESV A2C 53.7 mL LV ESV BP 51.2 mL LVEF(%) A4C 53.5 % LVEF(%) A2C 57.2 % LVEF(%) BP 55.3 % LV SV A4C 53.5 ml LV SV A2C 71.6 ml LV SV BP 63.5 ml LV CO A4C 3.1 L/min LV CO A2C 4.4 L/min LV CO BP 3.8 L/min HR A4C 58.92 BPM HR A2C 62.07 BPM LV EDV Index (BP) RA Volume RA Area A4C 11.7 cm2 RA ESV A4C (A-L) 30.1mL RA Vol/BSA A4C A-L RA Length A4C 3.9 cm RA ESV A4C (MOD) 28.3mL LV Diastology MV E' medial 0.058 (>0.07 m/s) MV E Vmax 1.84 (0.4-1.3 m/s) MV E/E' MED 31.49 (<14) MV A Vmax 0.75 (0.4-1.3 m/s) MV E' lateral 0.097 (>0.1 m/s) E/A Ratio 2.5 MV E/E' LAT 18.93 (<14) MV E' Average 0.078 m/s MV E/E'(average) 23.65 Aortic Valve AoV Vmax 3.28 m/s LVOT Vmax 1.74 m/s AoV Peak Grad 42.9 mmHg LVOT Peak Grad 12.1 mmHg AoV Area (Vmax) 1.21 cm2 LVOT VTI 0.375 m AoV VTI 0.750 m LVOT Mean Grad 6.4 mmHg AoV Mean Jesus. 2.24 m/s LVOT SV 85.30 mL AoV Mean Grad 23.1 mmHg LVOT Diam s 1.70 cm AoV Area (VTI) 1.14 cm2 Velocity Ratio 0.53 Mitral Valve MV DT 237 (160-240 msec) MV Vmax TIPS 1.66 m/s MV Mean Grad 3.6 (<2mmHg) MV VTI 0.495 m Pulmonary Valve PV Vmax 0.90 (0.5-1.5 m/s) RVOT Vmax 0.50 m/s PV Peak Grad 3.2 mmHg RVOT Peak Gr. 1.0 mmHg PV Mean Jesus 0.68 m/s RVOT VTI 0.103 m PV Mean Grad 2.0 mmHg RVOT Mean Gr. 0.6 mmHg Tricuspid Valve RA Pressure 3.00 mmHg TR Vmax 2.61 m/s TR Peak Grad 27.2 mmHg RVSP (TR) 30.2 mmHg
== END ==
PROVIDERS: PCP Nurse Practitioner; Visit Provider Physician Assistant Surgical
DX: J96.91 Respiratory failure, unspecified with hypoxia (principal)
CPT/HCPCS: 71250; 93306

== ENCOUNTER → 2023-06-17 13:12 | Outpatient (BNVA) | payer MEDICARE, MEDICAID, SELFPAY | PROVIDERS: PCP Nurse Practitioner; Referring Provider Nurse Practitioner; Visit Provider Student in an Organized Health Care Education/Training Program | DX: J44.9 Chronic obstructive pulmonary disease, unspecified (principal); J96.91 Respiratory failure, unspecified with hypoxia; R91.1 Solitary pulmonary nodule; F17.210 Nicotine dependence, cigarettes, uncomplicated | CPT/HCPCS: 99214 ==

== ENCOUNTER 2023-07-06 14:42 | Outpatient (CLI) | payer MEDICARE, MEDICAID, SELFPAY ==
[2023-07-06 15:02] LABS: Abs Immature Grans 0.02 10^3/uL (0.0-0.06); Absolute Eosinophil Count 0.08 10^3/uL (0.0-0.7); Absolute Monocyte Count 0.41 10^3/uL (0.1-0.8); Absolute Neutrophil Count 3.31 10^3/uL (1.2-6.7); Basophils % 1.7; Eosinophils % 1.3; HGB 13.3 g/dL (11.2-15.7); Immature Grans % 0.3; Lymphocytes % 34.9; MCH 27.4 pg (27.0-33.0); MCHC 32.4 % (32.0-36.0); MCV 85 fL (80-95); MPV 10.5 fL (8.0-11.0); Monocytes % 6.8; Platelet Count 384 10^3/uL (130-400); RBC 4.85 10^6/uL (3.93-5.22); RDW-SD 52.2 fL; WBC 6.02 10^3/uL (4.4-10.8)
[2023-07-06 16:14] LABS: Vitamin D 25 Total 17.3 ng/mL (30-100)
[2023-07-06 16:20] LABS: ALT 19 U/L (14-59); AST 19 U/L (15-37); Albumin 4.2 g/dL (3.4-5.0); Alkaline Phosphatase 89 U/L (46-116); BUN 8 mg/dL (7-18); Bilirubin, Total 0.4 mg/dL (0.2-1.0); Calcium 9.6 mg/dL (8.5-10.1); Chloride 105 mmol/L (98-107); Estimated GFR 69.93 (mL/min/1.73m2); Ferritin 81 ng/mL (8-252); Glucose 87 mg/dL (74-106); Potassium 4.2 mmol/L (3.5-5.1); Sodium 139 mmol/L (136-145); TSH (W/Ref FT4) 1.34 uIU/mL (0.36-3.74); Vitamin B12 533 pg/mL (193-986)
[2023-07-07 09:57] LABS: HIV-1/2 Ag & Ab Screen Negative (Negative)
[2023-07-07 09:59] LABS: Hepatitis C Ab w Rflx HCV PCR Negative (Negative)
== END 2023-07-06 14:43 | disposition home or self-care (01) ==
LOC: LBO 14:42
PROVIDERS: PCP Nurse Practitioner; Visit Provider Nurse Practitioner
DX: Z95.2 Presence of prosthetic heart valve (principal); J44.9 Chronic obstructive pulmonary disease, unspecified; Z13.220 Encounter for screening for lipoid disorders; Z11.59 Encounter for screening for other viral diseases; R53.83 Other fatigue; R53.81 Other malaise; E55.9 Vitamin D deficiency, unspecified; R19.7 Diarrhea, unspecified
CPT/HCPCS: 36415; 80053; 82306; 86803; 87389; 82607; 82728; 84443; 85025

== ENCOUNTER 2023-09-07 17:24 | Outpatient (REF) | payer MEDICARE, MEDICAID, SELFPAY ==
[2023-09-08 23:37] LABS: Campylobacter PCR Negative (Negative); Salmonella PCR Negative (Negative); Shiga Toxin PCR Negative (Negative); Shigella/Enteroinvasive Ecoli Negative (Negative)
== END 2023-09-07 17:25 | disposition home or self-care (01) ==
LOC: LBN 17:24
PROVIDERS: PCP Nurse Practitioner; Visit Provider Nurse Practitioner
DX: R19.7 Diarrhea, unspecified (principal)
CPT/HCPCS: 87505; 87177

== ENCOUNTER → 2023-09-15 13:15 | Outpatient (BNVA) | payer MEDICARE, MEDICAID, SELFPAY | PROVIDERS: PCP Nurse Practitioner; Referring Provider Nurse Practitioner; Visit Provider Physician Assistant Surgical | DX: J44.9 Chronic obstructive pulmonary disease, unspecified (principal); J96.91 Respiratory failure, unspecified with hypoxia; F17.210 Nicotine dependence, cigarettes, uncomplicated; I50.9 Heart failure, unspecified | CPT/HCPCS: 99214 ==

== ENCOUNTER 2023-09-15 16:51 | Outpatient (CLI) | payer MEDICARE, MEDICAID, SELFPAY ==
[2023-09-15 15:23] LABS: NT-proBNP 1826 pg/mL (<300)
== END 2023-09-15 16:52 | disposition home or self-care (01) ==
LOC: LBO 16:51
PROVIDERS: PCP Nurse Practitioner; Visit Provider Physician Assistant Surgical
DX: I50.9 Heart failure, unspecified (principal); J96.91 Respiratory failure, unspecified with hypoxia; J44.9 Chronic obstructive pulmonary disease, unspecified
CPT/HCPCS: 36415; 99214; 83880

== ENCOUNTER → 2023-10-14 00:50 | Outpatient (CLI) | payer MEDICARE, MEDICAID, SELFPAY ==
--- NOTE | 2023-10-14 07:45 | DI.CT_ITS ---
Exam(s) CT CHEST PE CTA EXAM: CT CHEST PE CTA CLINICAL HISTORY: increasing oxygen demands,resp failure with hypoxia,dyspnea,j96.91,r06.00. TECHNIQUE: Imaging Protocol: Axial CT angiography was performed with multi-slice acquisition and mu lti-planar and/or 3D reconstructions. CONTRAST MATERIAL: Intravenous: Omnipaque 350 contrast volume:100 mL COMPARISON: CT CT ABDOMEN PELVIS W from 10/12/[address] CHEST WO from 05/18/2023 FINDINGS: Tracheobronchial tree: Patent where visualized. Pulmonary parenchyma: Emphysematous changes are seen in the lungs. No focal consolidating infiltrate s are present. Pulmonary Arteries: No evidence of filling defect to suggest pulmonary emboli. Mediastinum and Codi: No dominant adenopathy or fluid collection. The esophagus is unremarkable. Visualized thyroid gland: Unremarkable. Pleura: No effusion or pneumothorax. Heart: The heart is not dilated. No coronary artery calcifications are seen. No pericardial effusion. The patient has both an aortic and mitral valve replacement. Aorta: Thoracic aorta non-dilated. No evidence of dissection. Upper abdomen: There is a stable cyst in the right lobe of the liver. Soft tissues: Unremarkable. Bones: Within normal limits for the patient's age. IMPRESSION: 1. No evidence of pulmonary embolism, thoracic aortic dissection or aneurysm. 2. Mild emphysematous changes in the lungs. 3. No acute pulmonary process. RADIATION DOSE DELIVERED: 335.87mGy.cm Total DLP DATA REPOSITORY: All CT scans at this facility are submitted to the National Radiology Data Registry (NRDR) Dose Index Registry (DIR) with the [employer] (ACR). RADIATION OPTIMIZATION: All CT scans at this facility use at least one of these dose optimization te chniques: automated exposure control; mA and/or kV adjustment per patient size (includes targeted exa ms where dose is matched to clinical indication); or iterative reconstruction.
[2023-10-14] MEDS: Omnipaque 350 MG/ML 100 ML BTL IJ (14:58)
[2023-10-14] MEDS: Normal Saline - Diluent 50 ML VIAL IJ (15:00)
== END ==
PROVIDERS: PCP Nurse Practitioner; Visit Provider Physician Assistant Surgical
DX: J96.91 Respiratory failure, unspecified with hypoxia (principal); R06.00 Dyspnea, unspecified
CPT/HCPCS: 71275; J3490

== ENCOUNTER 2023-10-18 15:12 | Outpatient (REF) | payer MEDICARE, MEDICAID, SELFPAY ==
[2023-10-18 22:37] LABS: Abs Immature Grans 0.01 10^3/uL (0.0-0.06); Absolute Basophil Count 0.09 10^3/uL (0.0-0.2); Absolute Eosinophil Count 0.15 10^3/uL (0.0-0.7); Absolute Lymphocyte Count 1.72 10^3/uL (1.2-3.4); Absolute Monocyte Count 0.43 10^3/uL (0.1-0.8); Absolute Neutrophil Count 2.64 10^3/uL (1.2-6.7); Basophils % 1.8 %; HCT 27.2 % (36.0-46.0); Immature Grans % 0.2 %; Lymphocytes % 34.1 %; MCH 22.3 pg (27.0-33.0); MCHC 29.4 % (32.0-36.0); MCV 76 fL (80-95); MPV 10.9 fL (8.0-11.0); Monocytes % 8.5 %; Neutrophils % 52.4 %; Platelet Count 476 10^3/uL (130-400); RBC 3.58 10^6/uL (3.93-5.22); RDW 18.5 % (11.7-14.6); RDW-SD 50.4 fL; WBC 5.04 10^3/uL (4.4-10.8)
[2023-10-18 23:01] LABS: Ferritin 20 ng/mL (8-252)
[2023-10-18 23:17] LABS: Diff Comment RBC Morph Reviewed
[2023-10-18 23:18] LABS: Anisocytosis 2+; Microcytosis 2+
== END 2023-10-18 15:13 | disposition home or self-care (01) ==
LOC: LBN 15:12
PROVIDERS: PCP Nurse Practitioner; Visit Provider Nurse Practitioner
DX: D64.9 Anemia, unspecified (principal); K62.5 Hemorrhage of anus and rectum; J45.909 Unspecified asthma, uncomplicated
CPT/HCPCS: 82728; 85025

== ENCOUNTER 2023-10-21 18:12 | Outpatient (CLI) | payer MEDICARE, MEDICAID, SELFPAY ==
[2023-10-21 14:54] LABS: HCT 28.3 % (36.0-46.0); HGB 8.6 g/dL (11.2-15.7); MCH 22.5 pg (27.0-33.0); MPV 10.9 fL (8.0-11.0); Platelet Count 508 10^3/uL (130-400); RBC 3.82 10^6/uL (3.93-5.22); RDW-SD 49.9 fL; WBC 5.98 10^3/uL (4.4-10.8)
[2023-10-21 15:26] LABS: CREATININE 0.8 mg/dL (0.55-1.02)
[2023-10-21 15:27] LABS: MCV 74 fL (80-95)
[2023-10-21 15:28] LABS: MCHC 30.4 % (32.0-36.0)
[2023-10-21 15:29] LABS: RDW 18.6 % (11.7-14.6)
== END 2023-10-21 18:13 | disposition home or self-care (01) ==
LOC: LBO 18:13
PROVIDERS: Physician Assistant Surgical; PCP Nurse Practitioner; Visit Provider Nurse Practitioner Family
DX: D64.9 Anemia, unspecified (principal); R06.00 Dyspnea, unspecified; J96.91 Respiratory failure, unspecified with hypoxia
CPT/HCPCS: 36415; 85027; 82565

== ENCOUNTER 2023-11-16 16:18 | Outpatient (CLI) | payer MEDICARE, MEDICAID, SELFPAY ==
[2023-11-16 13:35] LABS: HCT 29.4 % (36.0-46.0); HGB 8.8 g/dL (11.2-15.7); MCH 22.3 pg (27.0-33.0); MCHC 29.9 % (32.0-36.0); MPV 10.5 fL (8.0-11.0); Platelet Count 421 10^3/uL (130-400); RBC 3.95 10^6/uL (3.93-5.22); RDW 19.5 % (11.7-14.6); WBC 4.24 10^3/uL (4.4-10.8)
[2023-11-16 13:51] LABS: MCV 74 fL (80-95)
[2023-11-16 14:05] LABS: Anion Gap 6.8 mmol/L (3-11); BUN 8 mg/dL (7-18); CO2 28.2 mmol/L (21.0-32.0); CREATININE 0.9 mg/dL (0.55-1.02); Chloride 104 mmol/L (98-107); Estimated GFR 78.86 (mL/min/1.73m2); Glucose 96 mg/dL (74-106); Potassium 3.9 mmol/L (3.5-5.1); Sodium 139 mmol/L (136-145)
== END 2023-11-16 16:19 | disposition home or self-care (01) ==
LOC: LBO 16:20
PROVIDERS: PCP Nurse Practitioner; Visit Provider Nurse Practitioner
DX: D64.9 Anemia, unspecified (principal); R79.9 Abnormal finding of blood chemistry, unspecified
CPT/HCPCS: 36415; 80048; 85027

== ENCOUNTER 2024-01-10 01:12 | Outpatient (CLI) | payer MEDICARE, MEDICAID, SELFPAY ==
--- NOTE | 2024-01-10 07:15 | DI.CT_ITS ---
Exam(s) CT ABDOMEN PELVIS W EXAM: CT ABDOMEN PELVIS W CLINICAL HISTORY: mid abdominal pain,waxes,wanes,rectal bleeding,anemia,k62.5 TECHNIQUE: Imaging Protocol: Axial computed tomography images with coronal and sagittal reformatted images were created and reviewed. CONTRAST MATERIAL: Intravenous: Omnipaque 350 Contrast volume:85 mL Oral: Yes COMPARISON: CT CT ABDOMEN PELVIS W from 10/12/[address] CHEST PE CTA from 10/14/2023 FINDINGS: ABDOMEN: Lung Bases: Normal where visualized. Liver: Normal density. Stable right hepatic cyst. No suspicious hepatic lesions are seen. Portal, Superior Mesenteric, and Splenic Veins: Unremarkable. Gallbladder and Biliary Tract: Status post cholecystectomy. The common duct measures 1 cm which is u nchanged compared to the prior examinations. This might be due to the post cholecystectomy state. N o intrahepatic biliary ductal dilatation. Pancreas: Normal density, no abnormal calcifications or inflammatory process. Spleen: Normal. Adrenals: No masses seen. Kidneys: Normal size, contour and axis. No radiodense stones or obstructive uropathy. There is a stab le cyst in the inferior pole of the left kidney. Stable mild cortical scarring is seen in the upper pole of the left kidney. No suspicious renal masses are present. Abdominal Aorta: Abdominal portion non-dilated. Bowel: There is diverticulosis seen in the colon. There is no evidence of acute diverticulitis. No evidence of bowel obstruction or bowel wall thickening. No evidence of appendicitis. Peritoneal Cavity: No ascites, collection or mesenteric inflammatory response. No free air. Lymph Nodes: Within normal limits. Bones: Within normal limits for the patient's age. Soft Tissues: Unremarkable. PELVIS: Bladder: No gross abnormality is seen in the urinary bladder. The urinary bladder is incompletely dis tended. Reproductive Organs: There is a 2 cm simple cyst in the left ovary. The uterus appears absent. Lymph Nodes: Within normal limits. Bones: Within normal limits for the patient's age. IMPRESSION: 1. Colonic diverticulosis without evidence of acute diverticulitis. 2. Status post cholecystectomy. Stable common bile duct at 1 cm. This may be due to the post cholecys tectomy state. No intrahepatic biliary ductal dilatation is present. 3. No acute abdominal or pelvic process. RADIATION DOSE DELIVERED: 416.85mGy.cm Total DLP DATA REPOSITORY: All CT scans at this facility are submitted to the National Radiology Data Registry (NRDR) Dose Index Registry (DIR) with the [employer] (ACR). RADIATION OPTIMIZATION: All CT scans at this facility use at least one of these dose optimization te chniques: automated exposure control; mA and/or kV adjustment per patient size (includes targeted exa ms where dose is matched to clinical indication); or iterative reconstruction.
[2024-01-10] MEDS: Omnipaque 350 MG/ML 50 ML BTL PO (10:34)
[2024-01-10] MEDS: Breeza Beverage 473 ML BTL PO ×2 (10:35→10:36)
[2024-01-10] MEDS: Omnipaque 350 MG/ML 100 ML BTL IJ (13:22)
[2024-01-10] MEDS: Normal Saline - Diluent 50 ML VIAL IJ (13:23)
== END 2024-01-10 01:32 ==
LOC: DI 01:12
PROVIDERS: Visit Provider Nurse Practitioner
DX: K57.11 Diverticulosis of small intestine without perforation or abscess with bleeding (principal); K62.5 Hemorrhage of anus and rectum
CPT/HCPCS: 74177; J3490; Q9967

== ENCOUNTER 2024-01-10 14:09 | Outpatient (CLI) | payer MEDICARE, MEDICAID, SELFPAY | END 2024-01-10 14:10 | disposition home or self-care (01) | LOC: DI.CARD 14:10 | PROVIDERS: PCP Nurse Practitioner; Visit Provider Internal Medicine Cardiovascular Disease | CPT/HCPCS: 93010 ==

== ENCOUNTER 2024-01-13 16:15 | Outpatient (CLI) | payer MEDICARE, MEDICAID, SELFPAY ==
[2024-01-13 16:37] LABS: HCT 32.5 % (36.0-46.0); HGB 9.7 g/dL (11.2-15.7); MCH 23.8 pg (27.0-33.0); MPV 10.5 fL (8.0-11.0); Platelet Count 404 10^3/uL (130-400); RBC 4.08 10^6/uL (3.93-5.22); RDW-SD 61.1 fL; WBC 5.46 10^3/uL (4.4-10.8)
[2024-01-13 17:17] LABS: MCHC 29.8 % (32.0-36.0); MCV 80 fL (80-95); RDW 21.1 % (11.7-14.6)
[2024-01-13 17:24] LABS: ALT 19 U/L (14-59); AST 22 U/L (15-37); Albumin 3.3 g/dL (3.4-5.0); Alkaline Phosphatase 76 U/L (46-116); Anion Gap 6.6 mmol/L (3-11); BUN 7 mg/dL (7-18); Bilirubin, Total 0.24 mg/dL (0.2-1.0); CO2 26.4 mmol/L (21.0-32.0); Calcium 8.7 mg/dL (8.5-10.1); Chloride 103 mmol/L (98-107); Estimated GFR 69.49 (mL/min/1.73m2); Glucose 87 mg/dL (74-106); Potassium 3.3 mmol/L (3.5-5.1); Sodium 136 mmol/L (136-145); Total Protein 6.7 g/dL (6.4-8.2)
[2024-01-13 17:31] LABS: NT-proBNP 778 pg/mL (<300)
== END 2024-01-13 16:16 | disposition home or self-care (01) ==
LOC: LBO 16:17
PROVIDERS: PCP Nurse Practitioner; Visit Provider Emergency Medicine
DX: I50.9 Heart failure, unspecified (principal); R06.00 Dyspnea, unspecified; R53.83 Other fatigue
CPT/HCPCS: 36415; 80053; 85027; 83880

== ENCOUNTER 2024-01-18 14:05 | Outpatient (CLI) | payer MEDICARE, MEDICAID, SELFPAY ==
--- NOTE | 2024-01-18 14:00 | RT.EKG_ITS ---
APPROVED REPORT Exam: Resting ECG Reason for Exam: weight gain Patient Location: O HR:67 bpm ECG Measurements Heart Rate 67 AXIS WY 151 P 63 QRSd 98 QRS 27 QT 442 T 84 QTc 467 Conclusion Sinus rhythm...normal P axis, V-rate 50- 99 Normal Electrocardiogram
== END 2024-01-18 14:06 | disposition home or self-care (01) ==
LOC: DI.KIM 14:06
PROVIDERS: PCP Nurse Practitioner; Visit Provider Nurse Practitioner
DX: Z95.2 Presence of prosthetic heart valve (principal)
CPT/HCPCS: 93010

== ENCOUNTER 2024-01-18 14:51 | Outpatient (CLI) | payer MEDICARE, MEDICAID, SELFPAY ==
--- NOTE | 2024-01-18 14:45 | DI.RAD_ITS ---
Exam(s) XR CHEST 2V PA LATERAL EXAM: XR CHEST 2V PA LATERAL CLINICAL HISTORY: anterior pain with deep breath R06.02 SOB R07.9 CHEST PAIN TECHNIQUE: 2D digital imaging was performed. Two views. COMPARISON: CT CT CHEST PE CTA from 10/14/2023 FINDINGS: HEART: Normal size. Aortic and mitral valve prostheses. Hospital Aorta: Not dilated. PULMONARY VASCULATURE: Normal. MEDIASTINUM: Unremarkable. LUNGS: Clear. PLEURAL SPACE: No pleural effusion or pneumothorax. BONE:Unremarkable for age. SOFT TISSUES: Unremarkable. IMPRESSION: No acute abnormality. DATA REPOSITORY: RADIATION DOSE DELIVERED:
== END 2024-01-18 15:11 ==
LOC: DI 14:58
PROVIDERS: PCP Nurse Practitioner; Visit Provider Nurse Practitioner
DX: R06.02 Shortness of breath (principal); R07.9 Chest pain, unspecified
CPT/HCPCS: 71046

== ENCOUNTER 2024-01-25 14:54 | Outpatient (REF) | payer MEDICARE, MEDICAID, SELFPAY ==
[2024-01-25 15:09] LABS: BUN 14 mg/dL (7-18); CREATININE 1.1 mg/dL (0.55-1.02); Calcium 9.2 mg/dL (8.5-10.1); Chloride 103 mmol/L (98-107); Estimated GFR 61.98 (mL/min/1.73m2); Glucose 93 mg/dL (74-106); Potassium 3.1 mmol/L (3.5-5.1); Sodium 141 mmol/L (136-145)
== END 2024-01-25 14:55 | disposition home or self-care (01) ==
LOC: LBN 14:54
PROVIDERS: PCP Nurse Practitioner; Visit Provider Nurse Practitioner
DX: R60.9 Edema, unspecified (principal); Z95.2 Presence of prosthetic heart valve
CPT/HCPCS: 80048

== ENCOUNTER 2024-02-08 11:14 | Outpatient (CLI) | payer MEDICARE, MEDICAID, SELFPAY ==
[2024-02-08 11:54] LABS: Bilirubin Negative (Negative); Blood Negative (Negative); Clarity Sl Cloudy (Clear); Glucose Negative (Negative); Ketones Negative (Negative); Leukocyte Esterase Negative (Negative); Nitrite Negative (Negative); Urobilinogen 0.2 mg/dL (Up to 0.2)
[2024-02-08 12:00] LABS: Prothrombin Time 40.6 sec (9.1-11.1)
[2024-02-08 12:11] LABS: Anion Gap 9.5 mmol/L (3-11); BUN 10 mg/dL (7-18); CO2 26.5 mmol/L (21.0-32.0); Chloride 105 mmol/L (98-107); Estimated GFR 69.49 (mL/min/1.73m2); Glucose 94 mg/dL (74-106); Potassium 3.5 mmol/L (3.5-5.1); Sodium 141 mmol/L (136-145)
[2024-02-08 12:13] LABS: INR 4.6 (0.9-1.1)
== END 2024-02-08 11:15 | disposition home or self-care (01) ==
LOC: LBO 11:16
PROVIDERS: PCP Nurse Practitioner; Visit Provider Internal Medicine Cardiovascular Disease
DX: R82.90 Unspecified abnormal findings in urine (principal); E87.6 Hypokalemia; Z95.2 Presence of prosthetic heart valve
CPT/HCPCS: 36415; 80048; 81003; 85610; 87086

== ENCOUNTER 2024-02-08 15:06 | Outpatient (CLI) | payer MEDICARE, MEDICAID, SELFPAY ==
--- NOTE | 2024-02-08 15:00 | RT.EKG_ITS ---
APPROVED REPORT Exam: Resting ECG Reason for Exam: chest heaviness/SOB Patient Location: O HR:94 bpm ECG Measurements Heart Rate 94 AXIS NE 133 P 73 QRSd 110 QRS 44 QT 404 T 86 QTc 506 Conclusion Sinus rhythm...normal P axis, V-rate 50- 99 Probable left atrial enlargement...P >50mS, <-0.10mV V1 Borderline prolonged QT interval...QTc >485mS
== END 2024-02-08 15:07 | disposition home or self-care (01) ==
LOC: DI.KIM 15:07
PROVIDERS: PCP Nurse Practitioner; Visit Provider Nurse Practitioner
DX: R07.89 Other chest pain (principal)
CPT/HCPCS: 93010

== ENCOUNTER 2024-02-08 15:19 | Emergency (ER) | payer MEDICARE, MEDICAID, SELFPAY ==
[2024-02-08 15:24] VITALS: BP 124/80; PULSE 100; RESP 20; TEMP 37.1; O2SAT 98
--- NOTE | 2024-02-08 15:30 | RT.EKG_ITS ---
APPROVED REPORT Exam: Resting ECG Reason for Exam: sob Patient Location: E HR:102 bpm ECG Measurements Heart Rate 102 AXIS MI 130 P 66 QRSd 94 QRS 44 QT 366 T 68 QTc 477 Conclusion Sinus tachycardia...rate> 99 Narrow complex sinus tachycardia rate of 102. Normal axis. Intervals within normal limits. No ST s egment abnormalities. No T wave inversions. Appears similar to prior dated earlier today.
--- NOTE | 2024-02-08 16:00 | W.ED.GENAD ---
Discharge Plan Disposition Patient Disposition: Eloped Condition: Stable Discharge Details Clinical Impression: Chronic dyspnea, Chest pain Primary Care Provider: Vielka Cowart ED Provider: Maricel Horner [place] Meds and New Rx's Prescriptions: No Action estrogen 1 mg PO DAILY metoprolol tartrate 25 mg tablet 12.5 mg PO BID omeprazole 40 mg capsule,delayed release(DR/EC) See Rx Instructions .ROUTE .COMPLEX Qty: 180 3RF Dose Instruction: TAKE ONE CAPSULE BY MOUTH TWICE A DAY Rx Instructions: TAKE ONE CAPSULE BY MOUTH TWICE A DAY topiramate 100 mg tablet 100 mg PO BID Qty: 180 3RF ferrous sulfate [Edenilson-Time] 325 mg (65 mg iron) tablet 325 mg PO DAILY Qty: 90 3RF meclizine 25 mg tablet See Rx Instructions .ROUTE .COMPLEX Qty: 180 3RF Dose Instruction: TAKE TWO TABLETS BY MOUTH THREE TIMES A DAY NEEDED Rx Instructions: TAKE TWO TABLETS BY MOUTH THREE TIMES A DAY NEEDED magnesium oxide 400 mg magnesium capsule 400 mg PO QHS Qty: 90 1RF furosemide 20 mg tablet 20 mg PO DAILY Qty: 30 3RF potassium chloride 20 mEq tablet extended release 40 meq PO DAILY Qty: 60 3RF potassium 99 mg PO DAILY aspirin 81 mg tablet,delayed release (DR/EC) 81 mg PO DAILY fluoxetine See Rx Instructions .ROUTE DIRECTED Rx Instructions: as directed; biotin 800 mcg tablet See Rx Instructions PO DIRECTED Rx Instructions: orally as directed; famotidine 40 mg tablet 40 mg PO BID Qty: 60 1RF cyclobenzaprine 10 mg tablet 10 mg PO TID PRN (Reason: muscle spasm) Qty: 90 3RF benzonatate 200 mg capsule See Rx Instructions .ROUTE .COMPLEX Qty: 90 3RF Dose Instruction: TAKE ONE CAPSULE BY MOUTH THREE TIMES A DAY Rx Instructions: TAKE ONE CAPSULE BY MOUTH THREE TIMES A DAY Belsomra 20 mg tablet 20 mg PO HS Qty: 30 2RF bupropion HCl [Wellbutrin XL] 150 mg tablet extended release 24 hr 150 mg PO QAM Qty: 90 3RF duloxetine 60 mg capsule,delayed release(DR/EC) 60 mg PO DAILY Qty: 90 3RF Rx Instructions: Patient will stop Reglan. trazodone 100 mg tablet 100 mg PO QHS Qty: 90 3RF (DME) pulse oximeter See Rx Instructions .Route .MEDSUPPLY Qty: 1 0RF Rx Instructions: As directed ipratropium-albuterol 0.5 mg-3 mg(2.5 mg base)/3 mL solution for nebulization 3 ml inhalation QID Qty: 540 12RF budesonide [Pulmicort] 0.5 mg/2 mL suspension for nebulization 0.5 mg inhalation BID Qty: 60 12RF warfarin 2 mg tablet 3 mg PO DAILY Qty: 100 6RF Rx Instructions: 3mg MWF and 4mg all other days. ondansetron 8 mg tablet,disintegrating See Rx Instructions .ROUTE .COMPLEX Qty: 90 1RF Dose Instruction: DISSOLVE ONE TABLET ON THE TONGUE EVERY 8 HOURS NEEDED FOR NAUSEA AND VOMITING Rx Instructions: DISSOLVE ONE TABLET ON THE TONGUE EVERY 8 HOURS NEEDED FOR NAUSEA AND VOMITING azithromycin 250 mg tablet 250 mg PO DAILY Qty: 30 1RF lorazepam 1 mg tablet 1 mg PO DAILY PRN (Reason: anxiety) Qty: 30 3RF clotrimazole 1 % cream 1 applic topical DAILY PRN (Reason: Rash) Rx Instructions: breast 'sweat bumps' Discharge Instructions Instructions: Chest Pain, Adult ED, Shortness of Breath, Adult ED HPI General Mode of arrival: ambulatory. Date/Time Provider Initiated Documentation: 02/08/24 15:47. Limitations to Documentation: no limitations. Information obtained by: patient, RN notes reviewed and old records reviewed. HPI Narrative: 48 year old female presents to the ER with cc SOB and intermittent CP since Tuesday. Sent here for further eval by PCP. Patient wears 3L nc home o2 for COPD. She has no increased WOB upon arrival. Denies cough outside of her normal, endorses nausea, denies diarrhea or abdominal pain. Related Data Home Medications ?Medication ?Instructions ?Recorded ?Confirmed potassium 99 mg PO DAILY 08/12/22 02/08/24 estrogen 1 mg PO DAILY 11/11/22 02/08/24 clotrimazole 1 % topical cream 1 applic topical DAILY PRN Rash 12/10/22 02/08/24 pulse oximeter #1 ea 01/31/23 02/08/24 metoprolol tartrate 25 mg tablet 12.5 mg PO BID 05/18/23 02/08/24 aspirin 81 mg tablet,delayed 81 mg PO DAILY 06/17/23 02/08/24 release biotin 800 mcg tablet See Rx Instructions PO DIRECTED 06/17/23 02/08/24 fluoxetine See Rx Instructions .Route 06/17/23 02/08/24 DIRECTED budesonide 0.5 mg/2 mL suspension 0.5 mg (2 mL) inhalation BID #60 mL 06/21/23 02/08/24 for nebulization (Pulmicort) ipratropium 0.5 mg-albuterol 3 mg 3 ml inhalation QID #540 mL 06/21/23 02/08/24 (2.5 mg base)/3 mL nebulization soln omeprazole 40 mg capsule,delayed See Rx Instructions .Route 08/17/23 02/08/24 release .COMPLEX #180 caps topiramate 100 mg tablet 100 mg PO BID #180 tab-caps 08/17/23 02/08/24 cyclobenzaprine 10 mg tablet 10 mg PO TID PRN muscle spasm #90 09/07/23 02/08/24 tabs famotidine 40 mg tablet 40 mg PO BID #60 tabs 09/07/23 02/08/24 bupropion HCl 150 mg 24 hr tablet, 150 mg PO QAM #90 tabs 10/10/23 02/08/24 extended release (Wellbutrin XL) duloxetine 60 mg capsule,delayed 60 mg PO DAILY #90 caps 10/10/23 02/08/24 release trazodone 100 mg tablet 100 mg PO QHS #90 tabs 10/10/23 02/08/24 ferrous sulfate 325 mg (65 mg 325 mg PO DAILY #90 tabs 10/18/23 02/08/24 iron) tablet (Edenilson-Time) meclizine 25 mg tablet See Rx Instructions .Route 10/18/23 02/08/24 .COMPLEX #180 tabs benzonatate 200 mg capsule See Rx Instructions .Route 10/21/23 02/08/24 .COMPLEX #90 caps warfarin 2 mg tablet 3 mg (1.5 x 2 mg) PO DAILY #100 10/26/23 02/08/24 tabs azithromycin 250 mg tablet 250 mg PO DAILY #30 tabs 11/14/23 02/08/24 ondansetron 8 mg disintegrating See Rx Instructions .Route 11/14/23 02/08/24 tablet .COMPLEX #90 tabs lorazepam 1 mg tablet 1 mg PO DAILY PRN anxiety #30 tabs 12/13/23 02/08/24 magnesium oxide 400 mg PO QHS #90 caps 01/18/24 02/08/24 furosemide 20 mg tablet 20 mg PO DAILY #30 tabs 01/25/24 02/08/24 potassium chloride 20 mEq 40 meq (2 x 20 mEq) PO DAILY #60 01/25/24 02/08/24 tablet,extended release tabs suvorexant 20 mg tablet (Belsomra) 20 mg PO HS #30 tabs 01/26/24 02/08/24 Previous Rx's ?Medication ?Instructions ?Recorded pulse oximeter #1 ea 01/31/23 budesonide 0.5 mg/2 mL suspension 0.5 mg (2 mL) inhalation BID #60 mL 06/21/23 for nebulization (Pulmicort) ipratropium 0.5 mg-albuterol 3 mg 3 ml inhalation QID #540 mL 06/21/23 (2.5 mg base)/3 mL nebulization soln omeprazole 40 mg capsule,delayed See Rx Instructions .Route 08/17/23 release .COMPLEX #180 caps topiramate 100 mg tablet 100 mg PO BID #180 tab-caps 08/17/23 cyclobenzaprine 10 mg tablet 10 mg PO TID PRN muscle spasm #90 09/07/23 tabs famotidine 40 mg tablet 40 mg PO BID #60 tabs 09/07/23 bupropion HCl 150 mg 24 hr tablet, 150 mg PO QAM #90 tabs 10/10/23 extended release (Wellbutrin XL) duloxetine 60 mg capsule,delayed 60 mg PO DAILY #90 caps 10/10/23 release trazodone 100 mg tablet 100 mg PO QHS #90 tabs 10/10/23 ferrous sulfate 325 mg (65 mg 325 mg PO DAILY #90 tabs 10/18/23 iron) tablet (Edenilson-Time) meclizine 25 mg tablet See Rx Instructions .Route 10/18/23 .COMPLEX #180 tabs benzonatate 200 mg capsule See Rx Instructions .Route 10/21/23 .COMPLEX #90 caps warfarin 2 mg tablet 3 mg (1.5 x 2 mg) PO DAILY #100 10/26/23 tabs azithromycin 250 mg tablet 250 mg PO DAILY #30 tabs 11/14/23 ondansetron 8 mg disintegrating See Rx Instructions .Route 11/14/23 tablet .COMPLEX #90 tabs lorazepam 1 mg tablet 1 mg PO DAILY PRN anxiety #30 tabs 12/13/23 magnesium oxide 400 mg PO QHS #90 caps 01/18/24 furosemide 20 mg tablet 20 mg PO DAILY #30 tabs 01/25/24 potassium chloride 20 mEq 40 meq (2 x 20 mEq) PO DAILY #60 01/25/24 tablet,extended release tabs suvorexant 20 mg tablet (Belsomra) 20 mg PO HS #30 tabs 01/26/24 Allergies Allergy/AdvReac Type Severity Reaction Status Date / Time celecoxib (From Celebrex) Allergy Intermediate unknown Verified 02/08/24 15:36 ibuprofen Allergy Intermediate Hives Verified 02/08/24 15:36 latex Allergy Intermediate unknown Verified 02/08/24 15:36 naproxen Allergy Intermediate unknown Verified 02/08/24 15:36 acetaminophen (From Vicodin) AdvReac Intermediate Nausea Verified 02/08/24 15:36 hydrocodone (From Vicodin) AdvReac Intermediate Nausea Verified 02/08/24 15:36 pantoprazole AdvReac Mild Diarrhea Verified 02/08/24 15:36 mushrooms Allergy Severe hives,itch Uncoded 02/08/24 15:36 adhesive tape Allergy Intermediate skin Uncoded 02/08/24 15:36 zurita, itching General Stated Complaint: RespSymp ROSA: 3 Review of Systems All systems reviewed & are unremarkable except as noted in HPI and below Cardiovascular Cardiovascular: Reports chest pain, Reports dyspnea and Reports dyspnea on exertion Respiratory Respiratory: Reports as per HPI, Reports dyspnea and Reports dyspnea on exertion Exam Narrative Exam Narrative: Constitutional: Alert and oriented x3. Appears stated age. Normal body habitus. Head: Normocephalic, no trauma. Eyes: Pupils PERRL, Red reflex noted, EOM's intact. Eyelids symmetrical without lesions, discharge, or swelling. ENT: Bilateral TM's WNL, External ear normal to inspection, no mastoid TTP, swelling, or erythema, Nasal turbinates WNL, no nasal discharge. Normal dentition, Posterior pharynx WNL, no exudate. Chest: RRR, Normal S1, S2, distal pulses intact. Resp: Lungs clear to auscultation bilaterally, no wheezes, rales, or rhonchi. Abdomen: Soft, non-distended, Normoactive bowel sounds all 4 quads. Musculoskeletal: Normal gait, Moves all 4 extremities without difficulty. Skin: No suspicious rashes or lesions. Capillary refill less than 2 sec. Neurologic: Cranial nerves II-XII intact. Alert and oriented x 3. Motor: No deficits noted. Sensory: Intact bilaterally all 4 extremities. Hematologic/Lymphatic: No ecchymosis, no lymphadenopathy. Course Vital Signs Vital signs: Vital Signs Temperature 37.1 C 02/08/24 15:24 Pulse 100 H 02/08/24 15:24 Respiratory Rate 20 02/08/24 15:24 Blood Pressure 124/80 02/08/24 15:24 Pulse Oximetry 98 02/08/24 15:24 Temperature 37.1 C 02/08/24 15:24 Temperature Source Temporal Artery Scan 02/08/24 15:24 Pulse 100 H 02/08/24 15:24 Respiratory Rate 20 02/08/24 15:24 Blood Pressure 124/80 02/08/24 15:24 Blood Pressure Position Sitting 02/08/24 15:24 Pulse Oximetry 98 02/08/24 15:24 Oxygen Delivery Method Nasal Cannula 02/08/24 15:24 Oxygen Flow Rate 3 02/08/24 15:24 Comment 3L at rest 5L with ambulation 02/08/24 15:24 Medical Decision Making 48 year old female presents to the ER with cc SOB and intermittent CP since Tuesday. Sent here for further eval by PCP. Patient wears 3L nc home o2 for COPD. She has no increased WOB upon arrival. Denies cough outside of her normal, endorses nausea, denies diarrhea or abdominal pain. Informed by staff physical therapy assistant that patient is refusing imaging. CBC is largely at patient's baseline she is anemic with a hemoglobin 9.7 hematocrit 31.5, VBG shows bicarb 29 base excess of 4 pH 7.4 CO2 is 45 CMP and troponin is pending at this time Fluvid is pending. 1635: Patient eloped from department took out her own IV and left prior to the completion of her workup. I did not get to speak with her prior to her leaving the department. Quality:SDOH Health Related Social Needs: No Data to Display PFSH All Active Problems (Updated 02/08/24 @ 16:56 by Maricel Horner NP) Chest pain (Acute) Chronic dyspnea (Acute) H/O aortic valve replacement (Acute) Chronic anticoagulation (Acute) Rectal hemorrhage (Acute) History of mitral valve replacement (Acute) Tinnitus, left (Acute) Otalgia, left ear (Acute) Sternal manubrial dissociation, subsequent encounter for fracture with nonunion (Acute ~01/2023) 02/15/23 Cardiology Dyspnea (Acute) Nicotine dependence, cigarettes, uncomplicated (Acute) Respiratory failure with hypoxia (Acute) Vestibular dysfunction of left ear (Acute ~10/2022) 11/02/22 Neurology History of traumatic brain injury (Acute) GERD (gastroesophageal reflux disease) (Chronic) Lumbago (Acute) Cigarette smoker (Acute) Benign positional vertigo (Acute) Anxiety (Chronic) Restless leg syndrome (Acute) Depression (Chronic) Insomnia (Acute) Dysphagia (Acute) Irritable bowel syndrome (IBS) (Chronic) Eating disorder (Acute) Mitral valve stenosis (Acute) Pulmonary hypertension (Acute) Chronic obstructive pulmonary disease (Chronic) Orthostatic hypotension (Acute) Anemia (Chronic) Medical History (Updated 02/08/24 @ 16:56 by Maricel Horner NP) Hiatal hernia per records from previous practice. EGD 09/06/2018 01/09/24 Barium Swallow done [facility] Post-concussion syndrome (09/20/13) H/O concussion Polypharmacy Fatigue H/O deep venous thrombosis Surgical History (Updated 01/16/24 @ 17:05 by Tess Ware RN) H/O colonoscopy 11/14/23-[facility]; next dur 5 yrs d/t hx of colon polyps Hx of esophagogastroduodenoscopy (~09/06/18) per records from previous practice. Chronic Antral ulcers, small moderate hiatal hernia, esophagatic, gastric polyp. 11/14/23-[facility]-reflux presumably related to hiatal hernia History of laparoscopic appendectomy (~06/19/07) per records from previous practice. History of thoracic surgery (04/22/23) [facility] - Removal of sternal wire Hx of tubal ligation Hx of hysterectomy (~12/06/16) no cervix. (per records from previous practice) Family History Father Alcohol use disorder Asthma Daughter Anxiety Asthma Depression Maternal Grandfather Heart disease Depression Lung cancer Maternal Grandmother Lung cancer Social History Smoking/Tobacco Use Status: Current every day Tobacco Type: cigarettes Tobacco: How many years used: 38 Smoking risk assessment performed?: Yes Alcohol Intake: current Alcohol Intake frequency: a few times a month Alcohol type: beer Drug use: Never Substance use type: does not use Adopted: No Caregiver/Support person: No Foster care: No Household members: none Housing: house Number of Children: 4 number of grandchildren: 4 Education Level: high school current occupation: none Pets and animals: Yes Pets and animals: dog(s) Sexually active: No Do you think of yourself as: straight/heterosexual How often do you talk on the phone with friends or family?: three or more times per week How often do you get together with friends or relatives?: three or more times per week Panel score (0-1 are the most socially isolated patients): 1 What type of physical activity do you participate in: none Special radha needs: No Seatbelt use: never Helmet use: Yes Helmet use: sometimes Drive intox or ride w/intox dedicated intermodal truck driver: No Do you feel safe at home: Yes Do you feel safe in your relationship?: Yes Additional Social history: talking to on phone
[2024-02-08 16:11] VITALS: O2SAT 100
[2024-02-08 16:18] LABS: BE (Venous) 4 mmol/L (-2-3); HCO3 (Venous) 29 mmol/L (23-28); O2 Sat (Venous) 77 %; TCO2 (Venous) 27 mmol/L (24-29); pCO2 (Venous) 45 mmHg (41-51); pH (Venous) 7.41 (7.31-7.41); pO2 (Venous) 42 mmHg
[2024-02-08 16:19] LABS: Abs Immature Grans 0.01 10^3/uL (0.0-0.06); Absolute Basophil Count 0.06 10^3/uL (0.0-0.2); Absolute Eosinophil Count 0.05 10^3/uL (0.0-0.7); Absolute Lymphocyte Count 1.65 10^3/uL (1.2-3.4); Absolute Monocyte Count 0.46 10^3/uL (0.1-0.8); Absolute Neutrophil Count 3.63 10^3/uL (1.2-6.7); Eosinophils % 0.9 %; HCT 31.5 % (36.0-46.0); HGB 9.7 g/dL (11.2-15.7); Immature Grans % 0.2 %; Lymphocytes % 28.2 %; MCH 24.3 pg (27.0-33.0); MCHC 30.8 % (32.0-36.0); MCV 79 fL (80-95); MPV 10.5 fL (8.0-11.0); Monocytes % 7.8 %; Neutrophils % 61.9 %; Platelet Count 336 10^3/uL (130-400); RBC 3.99 10^6/uL (3.93-5.22); RDW 19.2 % (11.7-14.6); RDW-SD 54.8 fL; WBC 5.86 10^3/uL (4.4-10.8)
[2024-02-08 16:20] VITALS: O2SAT 100
[2024-02-08 16:33] LABS: PTT Activated 46.3 sec (23.6-32.8)
[2024-02-08 16:43] VITALS: O2SAT 100
[2024-02-08 16:46] LABS: Prothrombin Time 39.9 sec (9.1-11.1)
[2024-02-08 16:48] LABS: INR 4.5 (0.9-1.1)
[2024-02-08 16:50] LABS: ALT 21 U/L (14-59); AST 26 U/L (15-37); Albumin 3.2 g/dL (3.4-5.0); Alkaline Phosphatase 66 U/L (46-116); BUN 10 mg/dL (7-18); Bilirubin, Total 0.35 mg/dL (0.2-1.0); Chloride 106 mmol/L (98-107); Estimated GFR 69.49 (mL/min/1.73m2); Glucose 91 mg/dL (74-106); Magnesium 1.9 mg/dL (1.8-2.4); NT-proBNP 384 pg/mL (<300); Potassium 3.7 mmol/L (3.5-5.1); Sodium 142 mmol/L (136-145); Total Protein 6.9 g/dL (6.4-8.2); Troponin I 14 ng/L (<or=51)
--- NOTE | 2024-02-11 08:10 | NUR.NOTE ---
Access chart to reconcile EKG orders with EKG's in [facility]. Duplicate order cancelled. Nursing Note:
== END 2024-02-08 16:56 | disposition left against medical advice (07) ==
PROVIDERS: Emergency Provider Registered Nurse Emergency; PCP Nurse Practitioner
DX: R06.09 Other forms of dyspnea (principal); R07.9 Chest pain, unspecified; J44.9 Chronic obstructive pulmonary disease, unspecified; Z86.718 Personal history of other venous thrombosis and embolism; Z79.82 Long term (current) use of aspirin; Z79.01 Long term (current) use of anticoagulants; Z95.2 Presence of prosthetic heart valve; F17.210 Nicotine dependence, cigarettes, uncomplicated; Z53.29 Procedure and treatment not carried out because of patient's decision for other reasons
CPT/HCPCS: 36415; 80048; 80053; 82805; 87637; 93005; 99283; 81003; 83735; 83880; 84484; 85025; 85610; 85730; 87086; 93010

== ENCOUNTER → 2024-05-15 14:42 | Outpatient (BNVA) | payer MEDICARE, MEDICAID, SELFPAY | PROVIDERS: PCP Nurse Practitioner; Referring Provider Nurse Practitioner; Visit Provider Physician Assistant Surgical | DX: J44.9 Chronic obstructive pulmonary disease, unspecified (principal); J96.91 Respiratory failure, unspecified with hypoxia; I50.9 Heart failure, unspecified; F17.210 Nicotine dependence, cigarettes, uncomplicated | CPT/HCPCS: 99214 ==

== ENCOUNTER 2024-05-21 01:09 | Outpatient (CLI) | payer MEDICARE, MEDICAID, SELFPAY ==
--- NOTE | 2024-05-22 16:00 | W.PFT ---
Date of service: 05/21/24 Time of Service: 14:56 Pulmonary Function Test Result Indications: Respiratory failure Interpretation Spirometry: No airflow limitation. Lung Volumes: Normal lung volumes Diffusion Capacity: Reduced diffusion Airway Pressure: Normal airways resistance Impression Isolated diffusion deficit. Clinical Correlation therefore is recommended.
== END 2024-05-21 01:10 | disposition home or self-care (01) ==
LOC: RT 01:09
PROVIDERS: PCP Nurse Practitioner; Visit Provider Student in an Organized Health Care Education/Training Program
DX: J96.91 Respiratory failure, unspecified with hypoxia (principal)
CPT/HCPCS: 94010; 94726; 94729

== ENCOUNTER 2024-05-24 00:48 | Outpatient (CLI) | payer MEDICARE, MEDICAID, SELFPAY ==
--- NOTE | 2024-05-24 06:15 | DI.NM_ITS ---
APPROVED REPORT Exam: Pharmacologic Patient Location: Out-Patient Room/Bed: Stress Nurse: Diane Campbell RN Ordering Provider:WILD CHILO, Contact Number: [phone] BMI: 27.43 Baseline Rhythm: Sinus Rhythm Indications: Breathlessness, heart failure, Medical History Medical History: DVT, hiatal hernia, polypharmacy, h/o concussion syndrome, rectal hemorrhage, sterna l manubrail dissociation, nicotine dependence, respiratory failure, hx TBI, GERD, anxiety, depression , COPD, pulmonary HTN, insomnia, anemia, orthostatic hypotension, RLS Cardiac Medications: Warfarin, trazodone, topiramate, suvorexant, potassium chloride, zofran, omepraz ole, metoprolol succinate, meclizine, lorazepam, ipratropium-albuterol, furosemide, famotidine, dulox etine, cyclobenzaprine, bupropion, pulmicort, aspirin Allergies: Celebrex, latex, ibuprofen, naproxen, vicodin, pantoprazole, mushrooms Cardiac Risk Factors: Family hx, COPD, smoker Previous Cardiac Procedures: Aortic valce replacement, mitral valve replacement Pretest Chest Pain Characteristics: Sharp (refused to rate pain level) Exercise History: Sedentary Physical Disabilities: O2 dependent Lung Sounds: Clear to auscultation Heart Sounds: Regular Stress Test Details Test: Pharmacologic stress testing performed using 0.4 mg of regadenoson per 5 mL given IV over 10 s econds. Reason for pharmacologic stress test: physical limitation. Nuclear Acquisition: Rest Tc-99m/Stress Tc-99m 1 day Rest Isotope: Tc-99m Sestamibi. Dose: 10.7 Date: 05/24/2024 Injection Time: 0850 Stress Isotope: Tc-99m Sestamibi. Dose: 32.3 Date: 05/24/2024 Injection Time: 1010 HR Resting HR Supine: 74 bpm Max Heart Rate (APMHR): 172 bpm Target HR (85% APMHR): 146 bpm Max HR Achieved: 114 bpm % of APMHR: 66 Recovery HR: 79 bpm BP Resting BP Supine: 110/70 mmHg Max BP: 150/80 mmHg Recovery BP: 110/78 mmHg ECG Resting ECG: Sinus Rhythm Ectopy: Rare PAC Stress ECG: Sinus Tachycardia ST Change: No significant ST segment changes noted Arrhythmia: None Recovery ECG: Sinus Rhythm Recovery ST Change: Nondiagnostic low heart rate Recovery Arrhythmia: None Clinical Stress Symptoms: Severe SOB Angina Score: Non-Limiting Rate Pressure Product: 19073 Stress ECG Conclusion 1. Electrocardiogram showed poor R wave progression 2. Patient underwent testing using pharmacologic stress with regadenoson 3. Peak heart rate achieved was 66% of maximal predicted for age. Electrocardiographic portion of th e test was nondiagnostic 4. See MPI report Stress Test Summary STAGE HR BP SpO2 Symptoms NOTES Supine 74 110/70 98% 2L O2 1 min post Lexiscan injection 97 150/80 100% 2L O2 Severe SOB 3 min post Lexiscan injection 95 120/80 6 min post Lexiscan injection 79 110/78 100% 2L O2 SOB resolved Proceeded to imaging ambulatory in no apparent distress. MPI Conclusion Myocardial perfusion is normal. There is no ischemia or evidence of prior infarction Ejection fraction is 58% with normal wall motion
[2024-05-24] MEDS: Regadenoson 0.4 MG/5 ML SYR IVP (10:55)
== END 2024-05-24 01:08 ==
LOC: DI 00:48
PROVIDERS: PCP Nurse Practitioner; Visit Provider Internal Medicine Cardiovascular Disease
DX: I50.9 Heart failure, unspecified (principal)
CPT/HCPCS: 78452; 93016; 93018; 93017; J2785

== ENCOUNTER 2024-07-10 14:20 | Outpatient (CLI) | payer MEDICARE, MEDICAID, SELFPAY | END 2024-07-10 14:21 | disposition home or self-care (01) | LOC: DI.CARD 14:24 | PROVIDERS: PCP Nurse Practitioner; Visit Provider Internal Medicine Cardiovascular Disease | DX: Z95.4 Presence of other heart-valve replacement (principal) | CPT/HCPCS: 93010 ==

== ENCOUNTER 2024-08-14 00:02 | Outpatient (CLI) | payer MEDICARE, MEDICAID, SELFPAY ==
--- NOTE | 2024-08-14 07:30 | DI.US_ITS ---
APPROVED REPORT EXAM: Comprehensive 2D, Doppler, and color-flow Echocardiogram Patient Location: Out-Patient Train Reservation Clerk: Harman Peterson RDCS (AE) Indications: History of mitral and aortic valve replacement Other Information Study Quality: Fair Conclusion Normal left ventricular wall thickness and chamber size. Ejection fraction is 55 to 60%. Wall motio n is normal Normal right ventricular size and function Left atrium is moderately dilated. Right atrial size is normal Patient is status post aortic valve replacement. Mean gradient is 23 mmHg. There is trace perivalvu lar aortic regurgitation There is mechanical mitral valve replacement. There is probable mild mitral regurgitation Normal tricuspid valve with mild regurgitation. Estimated right ventricular systolic pressure is 35 mmHg Wall motion Left Ventricle The left ventricle is normal size. The left ventricular systolic function is normal. The left ventric ular ejection fraction is within the normal range. There is normal left ventricular wall thickness. T here is normal LV segmental wall motion. There is no ventricular septal defect visualized. LVEF is 55 -60%. Right Ventricle The right ventricle is normal size. The right ventricular systolic function is normal. Atria Left atrium is moderately dilated. The right atrium size is normal. The interatrial septum is intact with no evidence for an atrial septal defect. Aortic Valve Status post aortic valve replacement. Mean gradient is 23 mmHg Trace paravalvular regurgitation Mitral Valve Status post mitral valve replacement. Probable mild mitral regurgitation Tricuspid Valve The tricuspid valve is normal in structure. There is no tricuspid valve stenosis. Mild tricuspid regu rgitation. The RVSP is 35 mmHg. Pulmonic Valve The pulmonary valve is normal in structure. There is no pulmonic valvular stenosis. There is no pulmo jaspal valvular regurgitation. Great Vessels The aortic root is normal in size. The ascending aorta is normal in size. Aortic arch is normal in ca liber. IVC is normal in size and collapses >50% with inspiration. Pericardium There is no pericardial effusion. 2D Dimensions IVSD d PLAX 0.99 cm F: 0.6-1.0 Ao Root d 3.16 cm F: 2.7 - 3.3 LVPW d PLAX 1.54 cm F: 0.6 - 1.0 Ao Asc Diam d 3.00 cm F: 2.3 - 3.1 LVID d PLAX 4.23 cm F: 3.8 - 5.2 LVDs 3.00 cm F: 2.2 - 3.5 LV EF Teichholz 56.2 % FS 29.10 % LV EDV (Teich) 80.1 mL LV ESV (Teich) 35.1 mL Stroke Vol Index (Teich) 24.35 M-Mode TAPSE 1.77 cm (M/F) >1.7 Auto EF LV EDV A4C 109.5 mL LV EDV A2C 106.9 mL LV EDV BP 110.0 mL LV ESV A4C 50.0 mL LV ESV A2C 47.8 mL LV ESV BP 50.6 mL LVEF(%) A4C 54.3 % LVEF(%) A2C 55.3 % LVEF(%) BP 54.0 % LV SV A4C 59.5 ml LV SV A2C 59.2 ml LV SV BP 59.5 ml LV CO A4C 4.2 L/min LV CO A2C 4.1 L/min LV CO BP 4.2 L/min HR A4C 71.15 BPM HR A2C 69.64 BPM LV EDV Index (BP) LA Volume LA Length A4C 4.7 cm LA Length A2C 4.4 cm LA Area A4C s 17.91 cm2 LA Area A2C s 14.54 cm2 LA Vol A4C A-L 57.48 mL LA Vol A2C A-L 40.94 mL LA Vol Biplane A-L 50.4 mL LA Vol/BSA A4C A-L LA Vol/BSA A2C A-L LA Vol/BSA BP A-L 27.3 mL/m2 LA Vol A4C MOD 52.4 mL LA Vol A2C MOD 39.0 mL LA Vol BP MOD 46.6 mL RA Volume RA Area A4C 13.2 cm2 RA ESV A4C (A-L) 35.9mL RA Vol/BSA A4C A-L RA Length A4C 4.1 cm RA ESV A4C (MOD) 33.5mL LV Diastology MV E' medial 0.073 (>0.07 m/s) MV E Vmax 1.34 (0.4-1.3 m/s) MV E/E' MED 18.46 (<14) MV A Vmax 0.70 (0.4-1.3 m/s) MV E' lateral 0.109 (>0.1 m/s) E/A Ratio 1.9 MV E/E' LAT 12.28 (<14) MV E' Average 0.091 m/s MV E/E'(average) 14.75 Aortic Valve AoV Vmax 3.13 m/s LVOT Vmax 1.07 m/s AoV Peak Grad 39.2 mmHg LVOT Peak Grad 4.6 mmHg AoV Area (Vmax) 0.93 cm2 LVOT VTI 0.252 m AoV VTI 0.636 m LVOT Mean Grad 2.9 mmHg AoV Mean Jesus. 2.27 m/s LVOT SV 68.71 mL AoV Mean Grad 22.7 mmHg LVOT Diam s 1.85 cm AoV Area (VTI) 1.08 cm2 AV Regurg Peak Gr. 39.25 mmHg Velocity Ratio 0.34 Mitral Valve MV DT 206 (160-240 msec) Pulmonary Valve PV Vmax 0.78 (0.5-1.5 m/s) RVOT Vmax 0.62 m/s PV Peak Grad 2.4 mmHg RVOT Peak Gr. 1.5 mmHg PV Mean Jesus 0.57 m/s RVOT VTI 0.127 m PV Mean Grad 1.5 mmHg RVOT Mean Gr. 0.7 mmHg Tricuspid Valve RA Pressure 3.00 mmHg TR Vmax 2.83 m/s TV S' 0.09 m/s TR Peak Grad 32.0 mmHg RVSP (TR) 35.0 mmHg
[2024-08-14 16:06] LABS: Abs Immature Grans 0.07 10^3/uL (0.0-0.06); Absolute Basophil Count 0.09 10^3/uL (0.0-0.2); Absolute Eosinophil Count 0.12 10^3/uL (0.0-0.7); Absolute Lymphocyte Count 1.34 10^3/uL (1.2-3.4); Absolute Monocyte Count 0.52 10^3/uL (0.1-0.8); Absolute Neutrophil Count 2.33 10^3/uL (1.2-6.7); Eosinophils % 2.7 %; HCT 31.4 % (36.0-46.0); HGB 9.6 g/dL (11.2-15.7); Immature Grans % 1.6 %; MCHC 30.6 % (32.0-36.0); MCV 82 fL (80-95); Monocytes % 11.6 %; Neutrophils % 52.1 %; RBC 3.84 10^6/uL (3.93-5.22); RDW 17.2 % (11.7-14.6); RDW-SD 50.4 fL; WBC 4.47 10^3/uL (4.4-10.8)
[2024-08-14 16:15] LABS: ALT 22 U/L (14-59); AST 29 U/L (15-37); Albumin 3.5 g/dL (3.4-5.0); Alkaline Phosphatase 77 U/L (46-116); Anion Gap 9.8 mmol/L (3-11); BUN 12 mg/dL (7-18); Bilirubin, Total 0.4 mg/dL (0.2-1.0); CO2 25.2 mmol/L (21.0-32.0); CREATININE 0.9 mg/dL (0.55-1.02); Calcium 9.1 mg/dL (8.5-10.1); Chloride 107 mmol/L (98-107); Estimated GFR 78.86 (mL/min/1.73m2); Glucose 89 mg/dL (74-106); Potassium 3.7 mmol/L (3.5-5.1); Sodium 142 mmol/L (136-145)
== END 2024-08-14 00:03 | disposition home or self-care (01) ==
LOC: DI 00:02 → LBN 15:44
PROVIDERS: PCP Nurse Practitioner; Visit Provider Internal Medicine Cardiovascular Disease
DX: Z95.2 Presence of prosthetic heart valve (principal); D64.9 Anemia, unspecified; I27.20 Pulmonary hypertension, unspecified
CPT/HCPCS: 80053; 93306; 85025

== ENCOUNTER → 2024-11-12 13:38 | Outpatient (BNVA) | payer MEDICARE, MEDICAID, SELFPAY | PROVIDERS: PCP Nurse Practitioner; Referring Provider Nurse Practitioner; Visit Provider Physician Assistant Surgical | DX: J44.9 Chronic obstructive pulmonary disease, unspecified (principal); J96.91 Respiratory failure, unspecified with hypoxia; F17.210 Nicotine dependence, cigarettes, uncomplicated | CPT/HCPCS: 99214; NC OV ==

== ENCOUNTER 2025-03-07 12:17 | Outpatient (CLI) | payer MEDICARE, MEDICAID, SELFPAY ==
--- NOTE | 2025-03-07 12:15 | RT.EKG_ITS ---
APPROVED REPORT Exam: Resting ECG Reason for Exam: Chest tightness Patient Location: O HR:71 bpm ECG Measurements Heart Rate 71 AXIS HI 158 P 65 QRSd 103 QRS 18 QT 432 T 62 QTc 470 Conclusion Sinus rhythm...normal P axis, V-rate 50- 99 Normal Electrocardiogram
== END 2025-03-07 12:18 | disposition home or self-care (01) ==
LOC: DI.KIM 12:18
PROVIDERS: PCP Family Medicine; Visit Provider Family Medicine
DX: R07.89 Other chest pain (principal); J44.9 Chronic obstructive pulmonary disease, unspecified
CPT/HCPCS: 93010

== ENCOUNTER → 2025-03-07 13:03 | Outpatient (CLI) | payer MEDICARE, MEDICAID, SELFPAY ==
--- NOTE | 2025-03-07 13:00 | DI.RAD_ITS ---
Exam(s) XR CHEST 2V PA LATERAL EXAM: XR CHEST 2V PA LATERAL CLINICAL HISTORY: Productive cough, r/o infiltrate, COPD, J44.9 TECHNIQUE: 2D digital imaging was performed. Two views. COMPARISON: CR XR CHEST 2V PA LATERAL from 01/18/2024 FINDINGS: HEART: Normal size. Metallic valve prostheses again noted. Aorta: Not dilated. PULMONARY VASCULATURE: Normal. MEDIASTINUM: Unremarkable. LUNGS: Clear. PLEURAL SPACE: No pleural effusion or pneumothorax. BONE:Unremarkable for age. SOFT TISSUES: Unremarkable. IMPRESSION: No acute abnormality. DATA REPOSITORY: RADIATION DOSE DELIVERED:
== END ==
LOC: DI 13:03
PROVIDERS: PCP Family Medicine; Visit Provider Family Medicine
DX: J44.9 Chronic obstructive pulmonary disease, unspecified (principal)
CPT/HCPCS: 71046

== ENCOUNTER 2025-03-07 13:04 | Outpatient (CLI) | payer MEDICARE, MEDICAID, SELFPAY ==
[2025-03-07 13:23] LABS: INR 3.6 (0.9-1.1); Prothrombin Time 32.9 sec (9.1-11.1)
== END 2025-03-07 13:05 | disposition home or self-care (01) ==
LOC: LBO 13:04
PROVIDERS: PCP Family Medicine; Visit Provider Internal Medicine Cardiovascular Disease
DX: Z95.2 Presence of prosthetic heart valve (principal); I05.0 Rheumatic mitral stenosis
CPT/HCPCS: 36415; 85610